=== PATIENT | male | born 1945 | race Caucasian/White ===

== ENCOUNTER 2018-07-03 14:48 | Inpatient (IN) ==
[2018-07-03] MEDS ORDERED: Aspirin 325 MG TABLET PO ONE (15:24)
[2018-07-03 15:42] LABS: Basophils % 0.2 %; Hematocrit 41.8 % (37.5-50.1); Hemoglobin 13.8 g/dL (12.9-16.9); Immature Granulocytes % 0.6 % (0-4); Lymphocytes # 0.9 K/mcL (0.6-4.6); Lymphocytes % 5.2 %; Mean Corpuscular Hemoglobin 28.4 pg (28.0-33.3); Monocytes # 1.5 K/mcL (0.0-1.3); Monocytes % 8.8 %; Neutrophils # 14.2 K/mcL (1.6-8.9); Platelet Count 253 K/mcL (140-400); Red Blood Count 4.86 M/mcL (4.19-5.50); Red Cell Distribution Width 12.7 % (11.5-14.5); Segmented Neutrophils % 85.2 %
[2018-07-03 15:47] LABS: INR 1.5; Prothrombin Time 16.6 Seconds (9.4-12.1)
--- NOTE | 2018-07-03 15:50 | Emergency Department Note ---
Disposition Clinical Impression: Elevated troponin, Liver abscess, Adrenal mass Disposition: Admitted As Inpatient Condition: Fair Referrals: Omar Tesfaye DO [Primary Care Provider] - Forms: ED Satisfaction Letter Time of Disposition: 18:04 General Adult HPI - General Chief complaint: ED Arrhythmia/Palpitations Stated complaint: palpitations Time Seen by Provider: 07/03/18 15:00 Source: patient Mode of arrival: ambulatory Limitations: no limitations Nursing Notes Reviewed: Yes Vital Signs Reviewed: Yes - History of Present Illness HPI Narrative: 73-year-old male in presented to the emergency room for chest pain. Onset was partially 3 weeks ago. His been intermittent for 3 weeks. Associated with fatigue and diaphoresis. States he woke up today having intermittent sweats. States he felt rundown and fatigued. He had some chest pain located to the left side of his anterior chest wall. No pain radiation. He denies any history of coronary disease. Does have a smoking history only. No previous workup for any cardiac catheters in the past. He is chest pain-free at the moment. No other complaints at this time. Nothing seems to bring the chest pain on. Pain Scale: 0 - Related Data Allergies Allergy/AdvReac Type Severity Reaction Status Date / Time No Known Allergies Allergy Verified 07/03/18 14:50 Review of Systems: Gen.: No fevers or chills or new weakness Eyes: Denies double vision or any vision changes Ears: Denies any otalgia Pharynx: Denies sore throat CV-- positive for chest pain Respiratory: Denies any cough or sputum production. No shortness of breath. GI: Denies any nausea, vomiting, diarrhea, constipation. Denies abdominal pain Neuro: Denies any headache. No problems with ambulation. No numbness. Skin: Denies any rashes or abrasions Psych: Denies any depression or suicidal or homicidal ideation Musculoskeletal: Denies any arthralgias or myalgias Past Medical History - Past Medical History Medical history: Reports: hypertension Psychiatric history: Reports: no psych history - Social History Smoking Status: Current every day smoker Alcohol use: Reports: none Drug use: Reports: none Physical Exam HEENT: Head atraumatic normocephalic. Pharynx clear with no exudates. Oral mucosa moist. Uvula midline. TMs clear bilaterally. Trachea midline. No lymphadenopathy. Heart: Regular rate and rhythm. Normal S1 and S2. No gallops, rubs, or murmurs. Lungs: Clear to auscultation bilaterally. No evidence of any rhonchi wheezing or rales. Abdomen: Soft nontender nondistended. Positive bowel sounds. No peritoneal signs. Extremities: No evidence of cyanosis clubbing or edema. Neuro: Cranial nerves II through XII grossly intact. No focal motor or sensory deficits. Speech is clear. Skin: Normal color. dry. Psych: normal mentation. - General Limitations: no limitations General appearance: alert, in no apparent distress Course - Reevaluation(s) Reevaluation #1: consulted with dr davila with IR they can drain this abscess tomorrow and there is ID coverage tomorrow Vital Signs Temperature 98.2 F 07/03/18 14:48 Pulse Rate 86 07/03/18 14:48 Respiratory Rate 18 07/03/18 14:48 Blood Pressure 147/74 07/03/18 14:48 O2 Sat by Pulse Oximetry 96 07/03/18 14:48 Temperature 98.2 F 07/03/18 15:19 Pulse Rate 86 07/03/18 15:19 Respiratory Rate 18 07/03/18 15:19 Blood Pressure 147/74 07/03/18 15:19 O2 Sat by Pulse Oximetry 97 07/03/18 16:04 Oxygen Delivery Oxygen Delivery Room Air Medical Decision Making - [facility] Narrative Medical decision making narrative: CT of the chest did not reveal any acute pulmonary pathology. However, he incidental note of a liver abscess was noted. We then did a dedicated CT abdomen and pelvis with IV contrast which confirmed a large 7 cm liver abscess. And start him on IV vancomycin, Zosyn and Flagyl. Case was discussed with the hospitalist. I have held on any further anticoagulation for his elevated troponin due to this liver abscess. He is not having any active chest pain and he does not have a significant EKG changes. He was given aspirin. He was not started on heparin due to this liver abscess finding and the fact that he will have an interventional radiology procedure tomorrow. - Medical Records Medical records reviewed: Yes I reviewed the patient's medical records. - Lab Data Lab results reviewed: Yes I reviewed the patient's lab results. Result diagrams: 07/03/18 15:20 07/03/18 15:20 Lab Results 07/03/18 07/03/18 07/03/18 Range/Units 15:20 15:20 15:20 WBC 16.7 H (4.3-11.1) K/mcL RBC 4.86 (4.19-5.50) M/mcL Hgb 13.8 (12.9-16.9) g/dL Hct 41.8 (37.5-50.1) % MCV 86.0 (83.0-100.0) fL MCH 28.4 (28.0-33.3) pg MCHC 33.0 (31.6-35.5) g/dL RDW 12.7 (11.5-14.5) % Plt Count 253 (140-400) K/mcL MPV 10.0 (9.4-12.4) fL Immature Gran % 0.6 (0-4) % Seg Neutrophils % 85.2 % Lymphocytes % 5.2 % Monocytes % 8.8 % Eosinophils % 0.0 % Basophils % 0.2 % Neutrophils # 14.2 H (1.6-8.9) K/mcL Lymphocytes # 0.9 (0.6-4.6) K/mcL Monocytes # 1.5 H (0.0-1.3) K/mcL Eosinophils # 0.0 (0.0-0.6) K/mcL Basophils # 0.0 (0.0-0.2) K/mcL PT 16.6 H (9.4-12.1) Seconds INR 1.5 APTT 31.0 (26.0-36.0) Seconds Sodium 136 (136-145) mEq/L Potassium 3.6 (3.5-5.1) mEq/L Chloride 101 (98-107) mEq/L Carbon Dioxide 24 (23-29) mEq/L BUN 17 (8-23) mg/dL Creatinine 0.89 (0.70-1.30) mg/dL Est GFR ( Amer) > 60 (> 60) Est GFR (Non-Af Amer) > 60 (> 60) BUN/Creatinine Ratio 19 (6-26) Glucose 125 H (70-105) mg/dL Calculated Osmolality 285 (280-300) Calcium 8.9 (8.6-10.3) mg/dL Magnesium 2.1 (1.6-2.6) mg/dL Troponin I 0.06 H* (< 0.04) ng/mL TSH 1.678 (0.340-5.600) mcIU/mL - Radiology Data Radiology results reviewed: Yes I reviewed the patient's radiology results. - EKG Data EKG #1 EKG attestation: Yes I reviewed and interpreted this EKG. EKG results narrative: EKG shows a rate of 86. Normal sinus rhythm. Normal axis. MN interval 142. QRS 106. QTC 390. No signs of acute ischemia. Critical Care Time Critical Care Time: Yes Total Critical Care Time: 40 Attestation: Total critical care time of 40 minutes spent in medical management of elevated troponin, liver abscess, and consultation with interventional radiology as well as the hospitalist.
[2018-07-03 15:56] LABS: BUN/Creatinine Ratio 19 (6-26); Blood Urea Nitrogen 17 mg/dL (8-23); Calcium 8.9 mg/dL (8.6-10.3); Carbon Dioxide 24 mEq/L (23-29); Chloride 101 mEq/L (98-107); Glucose 125 mg/dL (70-105); Magnesium 2.1 mg/dL (1.6-2.6); Osmolality,Calculated 285 (280-300); Potassium 3.6 mEq/L (3.5-5.1); Sodium 136 mEq/L (136-145); eGFR For Non-African Americans > 60 (> 60)
[2018-07-03 16:00] LABS: Troponin I 0.06 ng/mL (< 0.04)
[2018-07-03 16:09] LABS: Thyroid Stimulating Hormone 1.678 mcIU/mL (0.340-5.600)
[2018-07-03] MEDS ORDERED: Isovue-370 500 ML INFUS..BTL IV ONE (16:33)
[2018-07-03] MEDS ORDERED: Piperacillin/Tazobactam 3.375 GM in 0.9 % Sodium Chloride Mini Bag 100 ML IVPB ONE (17:57)
[2018-07-03] MEDS ORDERED: MetroNIDAZOLE 500 MG/100 ML 500 MG/100 ML BAG IVPB ONE (17:57)
[2018-07-03] MEDS ORDERED: Naloxone 0.4 MG/ML INJ IVP PRN (20:38)
[2018-07-03] MEDS ORDERED: D5% in Water 1,000 ML IVC PRN (20:45)
[2018-07-03] MEDS ORDERED: *HR* Dextrose 50 % in Water (Syg) 50 ML SYRINGE IVP PRN (20:45)
[2018-07-03] MEDS ORDERED: Dextrose Gel 15 GM/37.5 ML TUBE PO PRN ×2 (20:45)
[2018-07-03] MEDS: MetroNIDAZOLE 500 MG/100 ML 500 MG/100 ML BAG IVPB SCH (23:52)
[2018-07-04 03:20] LABS: Hematocrit 38.1 % (37.5-50.1); Hemoglobin 12.7 g/dL (12.9-16.9); Mean Corpuscular HGB Conc 33.3 g/dL (31.6-35.5); Mean Corpuscular Hemoglobin 28.7 pg (28.0-33.3); Mean Platelet Volume 9.7 fL (9.4-12.4); Platelet Count 244 K/mcL (140-400); Red Blood Count 4.43 M/mcL (4.19-5.50); Red Cell Distribution Width 12.7 % (11.5-14.5)
[2018-07-04 03:39] LABS: BUN/Creatinine Ratio 19 (6-26); Blood Urea Nitrogen 15 mg/dL (8-23); Calcium 8.5 mg/dL (8.6-10.3); Carbon Dioxide 24 mEq/L (23-29); Chloride 102 mEq/L (98-107); Glucose 116 mg/dL (70-105); Osmolality,Calculated 282 (280-300); Potassium 3.6 mEq/L (3.5-5.1); Sodium 135 mEq/L (136-145); eGFR For Non-African Americans > 60 (> 60)
[2018-07-04] MEDS: MetroNIDAZOLE 500 MG/100 ML 500 MG/100 ML BAG IVPB SCH ×3 (06:07→22:54)
[2018-07-04] MEDS: amLODIPine 5 MG TABLET PO SCH (08:14)
[2018-07-04] MEDS: Piperacillin/Tazobactam 3.375 GM in 0.9 % Sodium Chloride Mini Bag 100 ML IVPB SCH ×3 (08:14→22:55)
[2018-07-04] MEDS: Insulin LISPRO 300 UNITS/3 ML VIAL SQ SCH ×4 (08:15→20:43)
--- NOTE | 2018-07-04 09:10 | Internal Med History&Physical ---
Date of Encounter: 07/03/18 Time of Encounter: 22:20 Internal Medicine - H&P: HPI Chief complaint: Liver abscess Admitted From: Home Plans for Post Hospital Care: Home History of present illness: Mr. Romero is a 73 year old male Patient presented to the emergency room complaining of chest pain for the last 3 weeks on and off. He is also had some fatigue as well. He has tried aspirin at home and this is helped him. He saw his primary care provider outpatient and he recommended he come to the emergency room for further evaluation. Over the last few weeks is also had decreased appetite increase lethargy and feeling chills which is not typical for him. In the emergency room patient's pain was located in the left anterior chest without radiation. He is a smoker one pack per day, as well as chewing tobacco. EKG in the emergency room was normal sinus rhythm with a QTC of 390 with no acute changes. He denied history of coronary artery disease. His troponin was elevated at 0.06, chest x-ray showed possible infiltrate in the right lung apex with a recommendation to get a chest CT, which showed 9.1 mm nodule in the right upper lobe. Incidental finding on the chest CT showed air-containing mass in the liver and abdominal and pelvis CT with IV contrast was recommended. The abdominal CT revealed a 7.1 cm gas- containing hepatic lesion consistent with abscess. There is also a 2 mm calculus in the right urinary bladder versus focal bladder wall calcification, indeterminate right adrenal mass 3.1 cm in size. Interventional radiology was notified and will consult on the patient in the morning. Patient was admitted to the hospital for further management of his chest pain and liver abscess. He was started on Vanco, Zosyn and Flagyl in the emergency room. Currently patient denies chest pain. Past Med Surg Social Fam HX - Past Medical History Medical history: hypertension Psychiatric history: no psych history - Social History Smoking Status: Current every day smoker Packs per day: 1/2 Smokeless Tobacco Status: Yes Alcohol use: none Drug use: none Internal Medicine - H&P: Meds Amlodipine Besylate 10 mg PO DAILY 07/03/18 [History] Buspirone HCl [Buspar] 10 mg PO DAILY 07/03/18 [History] Omeprazole [PriLOSEC] 20 mg PO DAILY 07/03/18 [History] 3 Allergy/AdvReac Type Severity Reaction Status Date / Time No Known Allergies Allergy Verified 07/03/18 18:26 All Systems PM: A 10-system review of systems was performed and is negative for pertinent findings except as documented above in the HPI. - Constitutional Vitals: Temp Pulse Resp BP Pulse Ox 99.1 F 85 17 139/56 93 07/04/18 06:55 07/04/18 06:55 07/04/18 06:55 07/04/18 06:55 07/04/18 06:55 General appearance: Present: cooperative, A&O X 3, pleasant, no acute distress, answers questions appropriately - Head Head exam: Present: normal inspection - Eye Eye exam: Present: normal appearance - Respiratory Respiratory exam: Present: CTAB. Absent: chest wall tenderness, wheezes - Cardiovascular Cardiovascular exam: Present: RRR. Absent: diastolic murmur, systolic murmur - GI/Abdominal GI/Abdominal exam: Present: normal bowel sounds, soft. Absent: tenderness - Extremities Exam Extremities exam: Present: warm, radial pulses palpable and symmetrical. Absent : calf tenderness, pedal edema, tenderness - Neurological Exam Neurological exam: Present: strengths equal and symetr throughout. Absent: motor sensory deficit, facial droop, speech deficit - Skin Skin exam: Present: dry, normal color, warm Internal Med - H&P Results - Labs CBC & Chem 7: 07/04/18 03:09 07/04/18 03:09 Labs: Short CBC 07/04/18 Range/Units 03:09 WBC 14.4 H (4.3-11.1) K/mcL Hgb 12.7 L (12.9-16.9) g/dL Hct 38.1 (37.5-50.1) % Plt Count 244 (140-400) K/mcL BMP 07/04/18 03:09 Sodium 135 L Potassium 3.6 Chloride 102 Carbon Dioxide 24 BUN 15 Creatinine 0.80 Glucose 116 H Calcium 8.5 L Cardiac Enzymes 07/03/18 07/04/18 Range/Units 21:17 03:09 Troponin I 0.03 < 0.03 (< 0.04) ng/mL - Assessment and plan (1) Liver abscess Current Visit: Yes Status: Acute Assessment and plan: Liver abscess measuring 7.[address] of abdomen. Interventional radiology consult for emergency room we will consult on the patient in the morning Follow-up recommendations from interventional radiology Continue antibiotics Follow-up results of blood cultures (2) Elevated troponin Current Visit: Yes Status: Acute Assessment and plan: Troponin elevated to 0.06 in the emergency room. Currently patient has no chest pain, EKG showed no acute changes. Patient has no known history of coronary artery disease. Continue to trend troponins Monitor on telemetry (3) Chest pain Current Visit: Yes Status: Acute Assessment and plan: Now resolved, patient was given aspirin in the emergency room. Could be secondary to her abscess and pulmonary nodule, patient has no known history of coronary artery disease. 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 Recommendations from radiology recommended CT at 3 months, PET/CT or tissue sampling. Likely secondary to history of smoking and tobacco use. (5) Diabetes Current Visit: Yes Status: Acute Assessment and plan: Currently patient does not take medication for diabetes, dietary controlled. To monitor blood sugars before meals at bedtime Low-dose insulin sliding scale as needed Qualifiers: Qualified Code(s): E11.9 - Type 2 diabetes mellitus without complications (6) GERD (gastroesophageal reflux disease) Current Visit: Yes Status: Acute Assessment and plan: Continue home medicine Prilosec Qualifiers: Qualified Code(s): K21.9 - Gastro-esophageal reflux disease without esophagitis (7) Nicotine dependence Current Visit: Yes Status: Acute Assessment and plan: Patient declined nicotine patch. Qualifiers: Qualified Code(s): F17.200 - Nicotine dependence, unspecified, uncomplicated (8) Adrenal mass Current Visit: Yes Status: Acute Assessment and plan: Adrenal mass seen on abdominal CT. Twelve-month follow-up CT exam recommended by radiology. (9) DVT prophylaxis Current Visit: Yes Status: Acute Assessment and plan: SCDs - Time Spent With Patient Total time spent is greater than 50% in coordination of care (as documented) at patient's floor/unit and/or counseling patient: Greater than 35 minutes
--- NOTE | 2018-07-04 09:20 | Internal Med Progress Note ---
<Cora Leal - Last Filed: 07/04/18 16:49> Hospitalist Progress Note - Encounter Date of Encounter: 07/04/18 Time of Encounter: 09:18 - Subjective Interval History: 73 y/o male admitted after liver abscess found incidentally when presented to ED for chest pain. Now no complaints and wants to know when he can go home. He states chest pain has resolved but admits to diaphoresis. Denies fever, palpations, shortness of breath, constipation, diarrhea, abdominal pain, nausa or vomiting. He has had 8 lb weight loss in 1-2 months. He has had chills, feverish feeling, and fatigue for 4-5 days. - Exam Vitals: Temp Pulse Resp BP Pulse Ox 99.1 F 85 17 139/56 93 07/04/18 06:55 07/04/18 06:55 07/04/18 06:55 07/04/18 06:55 07/04/18 06:55 Exam: General : pleasant, in no acute distress, A&Ox3 Cardiac: RRR no murmurs or gallop Respiratory: CTAB no wheeze or rales Abdomen: Soft, not distended, no tenderness, no masses, liver was not palpable Extremities: pulses intact, no pedal edema - Assessment and Plan (1) Liver abscess Current Visit: Yes Status: Acute Assessment and Plan: consulted ID and IR - per ID stop antibiotics until IR can see him - order blood cultures (2) Chest pain Current Visit: Yes Status: Acute Assessment and Plan: will continue to trend troponin at 0.06, 0.03, and <0.03 (3) Diabetes Current Visit: Yes Status: Chronic Assessment and Plan: diet controlled at home - ISS low (4) Adrenal mass Current Visit: Yes Status: Acute Assessment and Plan: follow up as out patient (5) Lung nodule < 6cm on CT Current Visit: Yes Status: Acute Assessment and Plan: follow up as out patient DVT Prophylaxis: ambulation - Time Spent with Patient Total time spent is greater than 50% in coordination of care (as documented) at patient's floor/unit and/or counseling patient: less than 15 minutes Plan of Care Discussed with: patient Internal Medicine: Result - Labs CBC & Chem 7: 07/04/18 12:38 07/04/18 12:38 Labs: Short CBC 07/04/18 Range/Units 03:09 WBC 14.4 H (4.3-11.1) K/mcL Hgb 12.7 L (12.9-16.9) g/dL Hct 38.1 (37.5-50.1) % Plt Count 244 (140-400) K/mcL BMP 07/04/18 03:09 Sodium 135 L Potassium 3.6 Chloride 102 Carbon Dioxide 24 BUN 15 Creatinine 0.80 Glucose 116 H Calcium 8.5 L Cardiac Enzymes 07/03/18 07/04/18 Range/Units 21:17 03:09 Troponin I 0.03 < 0.03 (< 0.04) ng/mL - ABG Interpretation ABG results: PT/INR, D-dimer PT 16.6 Seconds (9.4-12.1) H 07/03/18 15:20 Consult Discharge Plan - Plan Referrals: Omar Tesfaye DO [Primary Care Provider] - <Azar Reyes - Last Filed: 07/04/18 18:05> Hospitalist Progress Note - Encounter Date of Encounter: 07/04/18 - Exam Vitals: Temp Pulse Resp BP Pulse Ox 98.8 F 76 22 88/61 96 07/04/18 16:00 07/04/18 17:00 07/04/18 17:00 07/04/18 17:00 07/04/18 17:00 - Time Spent with Patient Total time spent is greater than 50% in coordination of care (as documented) at patient's floor/unit and/or counseling patient: Internal Medicine: Result - Labs CBC & Chem 7: 07/04/18 12:38 07/04/18 12:38 Labs: Short CBC 07/04/18 07/04/18 Range/Units 03:09 12:38 WBC 14.4 H 4.6 D (4.3-11.1) K/mcL Hgb 12.7 L 13.1 (12.9-16.9) g/dL Hct 38.1 41.0 (37.5-50.1) % Plt Count 244 220 (140-400) K/mcL Neutrophils # 4.0 (1.6-8.9) K/mcL BMP 07/04/18 07/04/18 03:09 12:38 Sodium 135 L 139 Potassium 3.6 3.3 L Chloride 102 104 Carbon Dioxide 24 22 L BUN 15 16 Creatinine 0.80 1.00 Glucose 116 H 99 Calcium 8.5 L 8.2 L Cardiac Enzymes 07/03/18 07/04/18 07/04/18 Range/Units 21:17 03:09 12:38 Troponin I 0.03 < 0.03 0.03 (< 0.04) ng/mL Liver Function 07/04/18 Range/Units 12:38 Total Bilirubin 1.2 H (0.3-1.0) mg/dL AST 32 (13-39) Units/L ALT 49 (7-52) Units/L Alkaline Phosphatase 132 H (34-104) Units/L Albumin 2.8 L (3.5-5.7) g/dL - ABG Interpretation ABG results: PT/INR, D-dimer PT 16.6 Seconds (9.4-12.1) H 07/03/18 15:20 - Impressions Impressions Liver Abscess Drainage CT 07/04/18 00:00 IMPRESSION: Successful CT guided placement of liver abscess drainage catheter. D/ / 07/04/2018 15:31:56 Estrella Ortega MD / ellyn Interpreting Provider: Estrella Ortega MD Chest X-Ray 07/04/18 12:11 IMPRESSION: Interstitial prominence noted in both lungs could represent noncardiogenic pulmonary edema or possibly an atypical pneumonia. Otherwise, stable chest D/ / 07/04/2018 13:19:00 Nabil Bass MD / ellyn Interpreting Provider: Nabil Bass MD - Attending Attestation I examined this patient and my medical decision-making was reviewed with the Resident Physician Dr. Leal. I agree with the documented findings, disposition and treatment plan as described except to the extent set forth below. Mr. Romero is a 73 y/o M who presented to ER with chest pain, fatigue and unintentional weight loss 8 lbs in [address] of abd showed hepatic abscess. Pt was admitted in the hospital and started him on empirical abx Zosyn , Vanc and Flagyl. This mroning he went for CT guided Liver biopsy and drainage of abscess. Had 70 cc puruelnt discharge. Later on the floor he developed severe sepsis with tachycardia, tachypenia, diffuse wheezing, shiver and tremors. Gave him Solumedrol, Benadryl and placed him on BiPAP. Pt was transferred to ICU for close monitoring . Now he is off the BiPAP. Resting comfortably on 3 lit O2 NC. Abd pain tolerable with pain meds. Tolerating pO intake well. Gen: A, A, O x 3 Chest: Diminished BS b/l, moderate wheezing no crackles, no rales Heart: S1S2+ RRR No murmurs Abd: Soft, Tendernes RUQ+, Drainage tube+ a/p 1. Severe sepsis 2. Hepatic abscess s/p CT guided I &D Trend on LA f/u on blood cx cont broad spec abx Zosyn , Flagyl and Vancomycin ID consulted Spent 60 minutes critical care time on this pt when he had almost rapid response this morning 3. Acute hypoxic resp failure 4. Reactive airway disease / bronchospasm triggered by sepsis cont IV hydration IV steroids Maribell Talked to the family at bed side and explained to them about current care. <Cora Leal - Last Filed: 07/04/18 16:49> (2) Chest pain Qualifiers: Qualified Code(s): R07.9 - Chest pain, unspecified (3) Diabetes Qualifiers: Qualified Code(s): E11.9 - Type 2 diabetes mellitus without complications
[2018-07-04] MEDS ORDERED: 0.9 % Sodium Chloride 500 ML ONE (10:35)
[2018-07-04] MEDS ORDERED: *HR* Midazolam HCl 2 MG/2 ML VIAL IVP ONE (10:36)
[2018-07-04] MEDS ORDERED: *HR* FentaNYL (PF) 100 MCG/2 ML VIAL IVP ONE (10:36)
--- NOTE | 2018-07-04 10:37 | Pre-Sedation Evaluation ---
Pre-sedation evaluation - Pre-sedation checklist Date of procedure: 07/04/18 Procedure: liver abscess drainage Recent Vitals: Last Vital Signs Temp 99.1 F 07/04/18 06:55 Pulse 85 07/04/18 06:55 Resp 17 07/04/18 06:55 BP 139/56 07/04/18 06:55 Pulse Ox 93 07/04/18 06:55 Dietary Status: NPO 6 hours prior to procedure Possible difficult airway: No ASA Classification *see protocol: CLASS II-Mild systemic disease Plan of Care: Pt appropriate candidate for procedure/moderate/conscious sedation , Risks/benefits of procedure/sedation discussed w/ patient/family, If not NPO; Risk of intake outweiged by necessity to perform procedure Cardiac Registry (Cardio Only) - Functional Capacity - Clincal Frailty Scale Clinical Frailty Scale: Well
--- NOTE | 2018-07-04 11:19 | IR Procedure Note ---
Date of procedure: 07/04/18 Consent Obtained: Written consent Timeout: Correct patient and procedure verified, Correct site verified, Time out performed, Skin prep completed Indications: liver abscess Procedure Performed: drainage Was there an certified registered dental assistant present: No Site/Technique: liver Results/Findings: 70cc smelly pus Estimated blood loss (cc): 0 Complications: None; Tolerated procedure well Post Procedure Treatment Plan: suction bulb Specimen: 70cc pus from liver, sent for cultures
[2018-07-04] MEDS ORDERED: 0.9 % Sodium Chloride 1,000 ML ONE (11:51)
[2018-07-04] MEDS ORDERED: Acetaminophen 325 MG TABLET PO PRN (11:52)
[2018-07-04] MEDS ORDERED: Ipratropium/Albuterol Neb 3 ML ONE (11:52)
[2018-07-04] MEDS ORDERED: methylPREDNISolone 125 MG/2 ML VIAL IVP ONE (11:55)
[2018-07-04] MEDS ORDERED: methylPREDNISolone 125 MG/2 ML VIAL ONE (11:55)
[2018-07-04] MEDS ORDERED: Acetaminophen 650 MG RECTAL SUPP RC PRN (12:01)
[2018-07-04] MEDS ORDERED: 0.9 % Sodium Chloride 1,000 ML IVC ONE (12:23)
--- NOTE | 2018-07-04 12:54 | Infectious Disease Consult ---
Date of Encounter: 07/04/18 Time of Encounter: 12:47 Assessment and Plan (1) Sepsis Status: Acute Assessment and plan: The patient developed tachycardia, low-grade fever, and tachypnea post- procedure. He also had leukocytosis on admission. Likely secondary to liver abscess. Concern for shedding of bacteria into the bloodstream with drain placement. Improved. WBC trending down today. Blood cultures drawn 07/03/18 are pending X 2 sets. Get blood cultures x 2 sets now. Check lactic acid. IV fluids per the primary team. Qualifiers: Sepsis type: sepsis due to unspecified organism Qualified Code(s): A41.9 - Sepsis, unspecified organism (2) Liver abscess Status: Acute Assessment and plan: Etiology: Unclear. The patient's CT scan shows diverticulosis without diverticulitis and the patient has no known cases of diverticulitis, although this could be a possible cause of the patient's liver abscess. Causative organism: Unclear. CT of the abdomen and pelvis showed a 7.1cm liver abscess. IR consulted. Status post CT-guided drain placement with approximately 70ml of pus drained. Culture and cytology pending. I called and spoke with Hermes in the lab who states they did receive the specimen and he will get it started. Continue Zosyn 3.375 grams IV Q8H. Continue Vancomycin IV for now to cover Enterococcus that might be amp- resistant. Pharmacy to dose. Goal trough ~15. If gram stain negative for GPC, will discontinue. Start Flagyl 500mg IV TID until cultures result to cover E. histolytica, although less likely. Duration of treatment depends on the clinical picture. Monitor renal function and for drug toxicity and dose-adjust antibiotics. (3) Elevated troponin Status: Acute Assessment and plan: Troponin 0.06/0.03/0.03. Consider cardiology consult. (4) Adrenal mass Status: Acute Assessment and plan: Etiology unclear, but does not appear infectious. Further workup and management per the primary team. (5) Lung nodule < 6cm on CT Status: Acute Assessment and plan: CT chest showed a 9.1mm RUL nodule. Pulmonology follow-up as an outpatient. (6) GERD (gastroesophageal reflux disease) Status: Chronic Qualifiers: Esophagitis presence: esophagitis presence not specified Qualified Code(s) : K21.9 - Gastro-esophageal reflux disease without esophagitis Infectious Disease HPI - Data of Consult Patient: new to practice Consult date: 07/04/18 Requesting Physician: Jasmine Skelton Primary Care Provider: Omar Tesfaye DO Family Provider: Omar Tesfaye DO - Consult Narrative Reason for consult: Liver abscess History of present illness: Mr. Romero is a 73 year old male with a past medical history of hypertension. The patient was admitted to the hospital July 03 for elevated troponin, liver abscess, and adrenal mass. We are consulted July 04 for further recommendations for liver abscess. Flu, the patient is a 73-year-old male with past medical history as stated above. The patient presented to the emergency department at the direction of his primary care provider for complaints of intermittent chest pain for the past 3 weeks. He also reported generalized fatigue and malaise with night sweats and weight loss. Upon arrival to the ER, the patient was afebrile and hemodynamically stable. He did have leukocytosis with neutrophilic predominance. His troponin was mildly elevated at 0.06. He had a chest x-ray that showed a possible right lung apex infiltrate and the radiologist recommended further evaluation with a CT of the chest. The CT of the chest showed a 9.1mm nodule in the right upper lung as well as an incidental finding of a liver mass. He had a dedicated CT of the abdomen and pelvis that showed a 7.1 cm liver abscess. He was started on Vanc, Zosyn, and Flagyl and admitted to the hospital for further evaluation. Since admission, the patient's white blood cell count has started to trend down. He has remained afebrile and hemodynamically stable. Interventional radiology was consulted and performed a CT-guided drain placement in the liver abscess. Approximately 70 mL of pus was removed. After the procedure, the patient became dyspneic, had low-grade fever and rigors, and had tachypnea. He improved with BIPAP, rectal Tylenol, and solumedrol. Body fluid was sent for culture as well as cytology. His antibiotics were restarted after the procedure. He is currently on vancomycin and Zosyn. We have been asked to evaluate and make further recommendations. During my exam today, the patient is somewhat drowsy and unable to provide me with any information, therefore, most of the information is obtained from his who is at the bedside. Apparently, the patient has been feeling generally unwell for the last 3-4 weeks. She states she has not been as active as normal and he has had a very poor appetite. She states she has lost about 8 pounds since his last PCP visit in February. She states she often wakes up in the nighttime with rigors and night sweats and chills that spontaneously resolved. According to the notes, the patient was complaining of left-sided chest pain that had been intermittent for the last 3 weeks as well. He denied any nausea or vomiting or diarrhea or change in his bowel habits. He denied any abdominal pain or urinary complaints. He denied any oral thrush or new skin lesions. The patient lives at home with his in [place], [place]. He is a retired eligibility examiner. He smokes about a pack of cigarettes per day. Per his , he does not use alcohol or illicit drugs. She denies any recent travel outside the [facility]. CC: Jasmine Skelton Past Med Surg Social Fam HX - Past Medical History Source: old records reviewed, obtained from family, nursing notes reviewed Medical history: hypertension Psychiatric history: no psych history - Past Surgical History Additional surgical history: Esophageal dilation. - Social History Smoking Status: Current every day smoker Packs per day: 1/2 Smokeless Tobacco Status: Yes Alcohol use: none Drug use: none Occupational status: retired Current living situation: Home, With Family Activity Level: Independent ambulation Recent Out of Country Travel Within the Last 8 Weeks: No Exposure or Possible Exposure to Illness During Travel: No Infectious Disease-CN:Meds Amlodipine Besylate 10 mg PO DAILY 07/03/18 [History] Buspirone HCl [Buspar] 10 mg PO DAILY 07/03/18 [History] Omeprazole [PriLOSEC] 20 mg PO DAILY 07/03/18 [History] Aspirin 81 mg PO DAILY #30 tab.chew 07/08/18 [Rx] Metoprolol [Lopressor] 25 mg PO BID 30 Days #30 tablet 07/08/18 [Rx] Kzymiipbwjoc-Lpvb-Qxtbdgoo,Iso [Zosyn 4.5 gm/100 ml Galaxy Bag] 4.5 gm IV Q8H # 84 froz.piggy 07/08/18 [Rx] 3 Allergy/AdvReac Type Severity Reaction Status Date / Time No Known Allergies Allergy Verified 07/03/18 18:26 All systems: reviewed and no additional remarkable complaints except as stated Exam - Constitutional Vitals: Temp Pulse Resp BP Pulse Ox 99.1 F 74 25 131/64 93 07/04/18 06:55 07/04/18 10:58 07/04/18 10:58 07/04/18 10:58 07/04/18 10:58 General appearance: average body habitus, cooperative, no acute distress - Head Head exam: Present: atraumatic, normal inspection, normocephalic - Eye Eye exam: Present: EOMI, normal appearance, PERRL Pupils: Present: normal accommodation - ENT ENT exam: Present: mucous membranes moist - Neck Neck exam: Present: normal inspection - Respiratory Respiratory exam: Present: CTAB. Absent: rales, respiratory distress, rhonchi, wheezes - Cardiovascular Cardiovascular exam: Present: RRR, +S1, +S2 - GI/Abdominal GI/Abdominal exam: Present: normal bowel sounds, soft. Absent: distended, tenderness Additional comments: KADEN drain noted to the RUQ with small amount of dark brown drainage. - Extremities Exam Extremities exam: Present: normal inspection. Absent: joint swelling, pedal edema, tenderness - Neurological Exam Neurological exam: Present: alert, oriented X3, no focal deficits - Psychiatric Psychiatric exam: Present: normal affect, normal mood - Skin Skin exam: Present: dry, intact, normal color, warm Infectious Disease CN: Results - Labs CBC & Chem 7: 07/08/18 04:33 07/08/18 04:33 Consult Discharge Plan - Plan Referrals: Angelia Alvarez CNP [Advanced Practice Nurse] - 07/23/18 9:20 am (Please follow up as schedule...) Omar Tesfaye DO [Primary Care Provider] - 07/15/18 1:00 pm (Please follow up as schedule...) Prescriptions: Aspirin 81 mg PO DAILY #30 tab.chew Metoprolol [Lopressor] 25 mg PO BID 30 Days #30 tablet Mvylcoghulsp-Utkr-Otelxdsl,Iso [Zosyn 4.5 gm/100 ml Galaxy Bag] 4.5 gm IV Q8H # 84 froz.piggy
[2018-07-04 13:16] LABS: Troponin I 0.03 ng/mL (< 0.04)
[2018-07-04 13:21] LABS: Hemoglobin 13.1 g/dL (12.9-16.9); Mean Corpuscular Hemoglobin 28.4 pg (28.0-33.3); Mean Corpuscular Volume 88.7 fL (83.0-100.0); Mean Platelet Volume 10.6 fL (9.4-12.4); Platelet Count 220 K/mcL (140-400); Red Blood Count 4.62 M/mcL (4.19-5.50); Red Cell Distribution Width 12.8 % (11.5-14.5)
[2018-07-04 13:26] LABS: Alanine Aminotransferase 49 Units/L (7-52); Albumin 2.8 g/dL (3.5-5.7); Albumin/Globulin Ratio 0.9 (1.1-2.2); Alkaline Phosphatase 132 Units/L (34-104); Aspartate Amino Transferase 32 Units/L (13-39); BUN/Creatinine Ratio 16 (6-26); Bilirubin,Total 1.2 mg/dL (0.3-1.0); Blood Urea Nitrogen 16 mg/dL (8-23); C-Reactive Protein 216 mg/L (Less than 10); Calcium 8.2 mg/dL (8.6-10.3); Carbon Dioxide 22 mEq/L (23-29); Chloride 104 mEq/L (98-107); Globulin 3.2 g/dL (2.4-3.5); Glucose 99 mg/dL (70-105); Magnesium 1.8 mg/dL (1.6-2.6); Osmolality,Calculated 289 (280-300); Potassium 3.3 mEq/L (3.5-5.1); Sodium 139 mEq/L (136-145); eGFR For Non-African Americans > 60 (> 60)
[2018-07-04 13:39] LABS: Lymphocytes # 0.6 K/mcL (0.6-4.6); Monocytes # 0.1 K/mcL (0.0-1.3)
[2018-07-04 13:40] LABS: Platelet Estimate Normal (Normal)
[2018-07-04] MEDS: 0.9 % Sodium Chloride 1,000 ML IVC SCH ×2 (14:09→22:59)
[2018-07-04] MEDS: Ipratropium/Albuterol Neb 3 ML IH SCH ×3 (15:34→23:04)
[2018-07-04] MEDS: *HR* OxyCODONE/APAP 5/325 TABLET PO PRN ×2 (15:58→23:02)
--- NOTE | 2018-07-04 16:32 | Electrocardiograph Report ---
[address] [place], [place] [address] Test Date: 2018-07-03 Pat Name: Denis Romero Department: 104 Room: [facility] Gender: M Central Office Equipment Installer: : 1945 Requested By: Lacey Spring Order Number: [id number] Reading MD: Trish Nickerson Measurements Intervals [place] Rate: 86 P: 56 LA: 142 QRS: 49 QRSD: 106 T: 64 QT: 347 QTc: 390 Interpretive Statements SINUS RHYTHM WITH SINUS ARRHYTHMIA ARTIFACT Electronically Signed On 07-04-2018 16:31:08 EDT by Trish Nickerson
[2018-07-04] MEDS ORDERED: *HR* OxyCODONE/APAP 5/325 TABLET PO ONE (17:51)
[2018-07-04] MEDS: MethylPREDNISolone 40 MG/ML VIAL IVP SCH ×2 (17:58→22:54)
[2018-07-04 21:20] LABS: Acinetobacter baumannii by PCR Not Detected (Not Detect); Candida albicans by PCR Not Detected (Not Detect); Candida glabrata by PCR Not Detected (Not Detect); Candida krusei by PCR Not Detected (Not Detect); Candida parapsilosis by PCR Not Detected (Not Detect); Candida tropicalis by PCR Not Detected (Not Detect); Enterococcus by PCR Not Detected (Not Detect); Escherichia coli by PCR Not Detected (Not Detect); Klebsiella oxytoca by PCR Not Detected (Not Detect); Klebsiella pneumoniae by PCR Not Detected (Not Detect); Pseudomonas aeruginosa by PCR Not Detected (Not Detect); Serratia marcescens by PCR Not Detected (Not Detect); Staphylococcus aureus by PCR Not Detected (Not Detect); Streptococcus agalactiae(B)PCR Not Detected (Not Detect); Streptococcus by PCR Not Detected (Not Detect); Streptococcus pneumoniae PCR Not Detected (Not Detect); Streptococcus pyogenes (A) PCR Not Detected (Not Detect); blaKPC Carbapenem-Resist Gene Not Detected (Not Detect); mecA Methicillin-Resist Gene Not Detected (Not Detect); vanA/B Vancomycin-Resist Genes Not Detected (Not Detect)
[2018-07-05] MEDS: Ipratropium/Albuterol Neb 3 ML IH SCH ×5 (03:41→20:38)
[2018-07-05 05:33] LABS: Hematocrit 35.5 % (37.5-50.1); Hemoglobin 11.6 g/dL (12.9-16.9); Mean Corpuscular HGB Conc 32.7 g/dL (31.6-35.5); Mean Corpuscular Hemoglobin 28.9 pg (28.0-33.3); Mean Corpuscular Volume 88.5 fL (83.0-100.0); Mean Platelet Volume 10.3 fL (9.4-12.4); Platelet Count 183 K/mcL (140-400); Red Blood Count 4.01 M/mcL (4.19-5.50)
[2018-07-05 05:47] LABS: BUN/Creatinine Ratio 17 (6-26); Blood Urea Nitrogen 18 mg/dL (8-23); Calcium 7.7 mg/dL (8.6-10.3); Carbon Dioxide 19 mEq/L (23-29); Chloride 107 mEq/L (98-107); Glucose 276 mg/dL (70-105); Magnesium 2.1 mg/dL (1.6-2.6); Osmolality,Calculated 298 (280-300); Potassium 3.1 mEq/L (3.5-5.1); Sodium 138 mEq/L (136-145); eGFR For Non-African Americans > 60 (> 60)
[2018-07-05] MEDS: 0.9 % Sodium Chloride 1,000 ML IVC SCH ×2 (05:59→14:56)
[2018-07-05] MEDS: MethylPREDNISolone 40 MG/ML VIAL IVP SCH (05:59)
[2018-07-05 06:16] LABS: Neutrophils # 23.5 K/mcL (1.6-8.9); Platelet Estimate Normal (Normal)
[2018-07-05] MEDS: Insulin LISPRO 300 UNITS/3 ML VIAL SQ SCH ×4 (08:03→21:50)
[2018-07-05] MEDS: amLODIPine 5 MG TABLET PO SCH (09:20)
[2018-07-05] MEDS: Piperacillin/Tazobactam 3.375 GM in 0.9 % Sodium Chloride Mini Bag 100 ML IVPB SCH ×2 (09:21→16:37)
[2018-07-05] MEDS: MetroNIDAZOLE 500 MG/100 ML 500 MG/100 ML BAG IVPB SCH ×2 (09:21→19:15)
[2018-07-05] MEDS: *HR* OxyCODONE/APAP 5/325 TABLET PO PRN (09:23)
--- NOTE | 2018-07-05 09:59 | Infectious Disease Progress No ---
Date of Encounter: 07/05/18 Time of Encounter: 08:40 - Assessment and Plan (1) Sepsis Current Visit: Yes Status: Acute Severe sepsis: The patient developed tachycardia, low-grade fever, and tachypnea post-procedure. He also had leukocytosis on admission. Lactic acid elevated and was a little hypotensive yesterday. Likely secondary to liver abscess and bacteremia. Improved clinically, but now has worsening leukocytosis, but this could be reactive from procedure yesterday and steroids. He was febrile overnight with Tmax 103. Hypotension resolved. Blood cultures drawn 07/03/18 are positive 1/2 sets for GNR. Repeat blood cultures drawn 07/04/18 are pending x 2 sets. Qualifiers: Sepsis type: sepsis due to unspecified organism Qualified Code(s): A41.9 - Sepsis, unspecified organism (2) Bacteremia Current Visit: Yes Status: Acute Causative organism unclear, but appears to be a GNR. Unsure if this is secondary to liver abscess or if liver abscess is sequelae of bacteremia. Blood cultures drawn 07/03/18 are positive 1/2 sets for GNR, but PCR is negative. Repeat blood cultures drawn 07/04/18 are pending x 2 sets. Continue Zosyn 3.375 grams IV Q8H for now. De-escalate antibiotics if/when able based on cultures. Duration of treatment depends on the clinical picture. Monitor renal function and for drug toxicity and dose-adjust antibiotics. (3) Liver abscess Current Visit: Yes Status: Acute Etiology: Unclear. The patient has bacteremia, so unclear if this is the source of his bacteremia or sequelae. The patient's CT scan shows diverticulosis without diverticulitis and the patient has no known cases of diverticulitis, although this could be a possible cause of the patient's liver abscess. Causative organism: Unclear. I spoke with micro lab who reports the gram stain shows gram positive cocci and GNR. CT of the abdomen and pelvis showed a 7.1cm liver abscess. IR consulted. Status post CT-guided drain placement with approximately 70ml of pus drained 07/04/18. Culture and cytology pending. Gram stain pending. Continue Zosyn 3.375 grams IV Q8H. Continue Vancomycin IV for now to cover Enterococcus that might be amp- resistant. Pharmacy to dose. Goal trough ~15. Duration of treatment depends on the clinical picture. Monitor renal function and for drug toxicity and dose-adjust antibiotics. (4) Lactic acidosis Current Visit: Yes Status: Acute Likely secondary to sepsis. Continue to trend. (5) Elevated troponin Current Visit: Yes Status: Acute Troponin 0.06/0.03/0.03. Consider cardiology consult. (6) Adrenal mass Current Visit: Yes Status: Acute Etiology unclear, but does not appear infectious. Further workup and management per the primary team. (7) Lung nodule < 6cm on CT Current Visit: Yes Status: Acute CT chest showed a 9.1mm RUL nodule. Pulmonology follow-up as an outpatient. (8) GERD (gastroesophageal reflux disease) Current Visit: Yes Status: Chronic Qualifiers: Esophagitis presence: esophagitis presence not specified Qualified Code(s) : K21.9 - Gastro-esophageal reflux disease without esophagitis - Subjective Interval history: Patient seen and examined. No acute events noted overnight. Patient sitting up in bed with at bedside. States he feels better this morning. Reports pain 2 /10 at the drain site, but otherwise denies pain. Denies chest pain, shortness of breath, or cough. Denies nausea, vomiting, or diarrhea. Denies urinary complaints and states he ate a little bit of breakfast this morning. Denies oral thrush or skin lesions. Infect Dis PN-Objective Data - Labs CBC & Chem 7: 07/08/18 04:33 07/08/18 04:33 Labs: Laboratory Results - last 24 hr 07/03/18 07/04/18 07/04/18 20:57 08:10 11:40 WBC RBC Hgb Hct MCV MCH MCHC RDW Plt Count MPV Seg Neutrophils % Band Neutrophils % Lymphocytes % Monocytes % Neutrophils # Lymphocytes # Monocytes # Platelet Estimate ESR Sodium Potassium Chloride Carbon Dioxide BUN Creatinine Est GFR ( Amer) Est GFR (Non-Af Amer) BUN/Creatinine Ratio Glucose POC Glucose 125 H 103 H 96 Calculated Osmolality Lactic Acid Calcium Magnesium Total Bilirubin AST ALT Alkaline Phosphatase Troponin I C-Reactive Protein Serum Total Protein Albumin Globulin Albumin/Globulin Ratio Vancomycin Trough 07/04/18 07/04/18 07/04/18 12:38 12:38 12:38 WBC 4.6 D RBC 4.62 Hgb 13.1 Hct 41.0 MCV 88.7 MCH 28.4 MCHC 32.0 RDW 12.8 Plt Count 220 MPV 10.6 Seg Neutrophils % 84.0 Band Neutrophils % 2.0 Lymphocytes % 12.0 Monocytes % 2.0 Neutrophils # 4.0 Lymphocytes # 0.6 Monocytes # 0.1 Platelet Estimate Normal ESR 88 H Sodium 139 Potassium 3.3 L Chloride 104 Carbon Dioxide 22 L BUN 16 Creatinine 1.00 Est GFR ( Amer) > 60 Est GFR (Non-Af Amer) > 60 BUN/Creatinine Ratio 16 Glucose 99 POC Glucose Calculated Osmolality 289 Lactic Acid Calcium 8.2 L Magnesium 1.8 Total Bilirubin 1.2 H AST 32 ALT 49 Alkaline Phosphatase 132 H Troponin I 0.03 C-Reactive Protein 216 H Serum Total Protein 6.0 L Albumin 2.8 L Globulin 3.2 Albumin/Globulin Ratio 0.9 L Vancomycin Trough 07/04/18 07/04/18 07/04/18 12:38 13:08 16:03 WBC RBC Hgb Hct MCV MCH MCHC RDW Plt Count MPV Seg Neutrophils % Band Neutrophils % Lymphocytes % Monocytes % Neutrophils # Lymphocytes # Monocytes # Platelet Estimate ESR Sodium Potassium Chloride Carbon Dioxide BUN Creatinine Est GFR ( Amer) Est GFR (Non-Af Amer) BUN/Creatinine Ratio Glucose POC Glucose 97 136 H Calculated Osmolality Lactic Acid 3.4 H Calcium Magnesium Total Bilirubin AST ALT Alkaline Phosphatase Troponin I C-Reactive Protein Serum Total Protein Albumin Globulin Albumin/Globulin Ratio Vancomycin Trough 07/04/18 07/04/18 07/05/18 16:28 19:26 05:09 WBC 23.5 H D RBC 4.01 L Hgb 11.6 L D Hct 35.5 L MCV 88.5 MCH 28.9 MCHC 32.7 RDW 13.0 Plt Count 183 MPV 10.3 Seg Neutrophils % 88.0 Band Neutrophils % 12.0 H Lymphocytes % 0.0 Monocytes % Neutrophils # 23.5 H Lymphocytes # 0.0 L Monocytes # Platelet Estimate Normal ESR Sodium Potassium Chloride Carbon Dioxide BUN Creatinine Est GFR ( Amer) Est GFR (Non-Af Amer) BUN/Creatinine Ratio Glucose POC Glucose 191 H Calculated Osmolality Lactic Acid 2.3 H Calcium Magnesium Total Bilirubin AST ALT Alkaline Phosphatase Troponin I C-Reactive Protein Serum Total Protein Albumin Globulin Albumin/Globulin Ratio Vancomycin Trough 07/05/18 07/05/18 07/05/18 05:09 05:09 08:45 WBC RBC Hgb Hct MCV MCH MCHC RDW Plt Count MPV Seg Neutrophils % Band Neutrophils % Lymphocytes % Monocytes % Neutrophils # Lymphocytes # Monocytes # Platelet Estimate ESR Sodium 138 Potassium 3.1 L Chloride 107 Carbon Dioxide 19 L BUN 18 Creatinine 1.04 Est GFR ( Amer) > 60 Est GFR (Non-Af Amer) > 60 BUN/Creatinine Ratio 17 Glucose 276 H POC Glucose Calculated Osmolality 298 Lactic Acid 3.5 H Calcium 7.7 L Magnesium 2.1 Total Bilirubin AST ALT Alkaline Phosphatase Troponin I C-Reactive Protein Serum Total Protein Albumin Globulin Albumin/Globulin Ratio Vancomycin Trough 9 Cultures: Cultures 07/04/18 12:38 Blood Culture - Preliminary Peripheral Venipuncture Culture is incubating and being continuously monitored for growth. Final report to follow. 07/04/18 12:38 Blood Culture - Preliminary Peripheral Venipuncture Culture is incubating and being continuously monitored for growth. Final report to follow. - Impressions Impressions Liver Abscess Drainage CT 07/04/18 00:00 IMPRESSION: Successful CT guided placement of liver abscess drainage catheter. D/ / 07/04/2018 15:31:56 Estrella Ortega MD / ellyn Interpreting Provider: Estrella Ortega MD Chest X-Ray 07/04/18 12:11 IMPRESSION: Interstitial prominence noted in both lungs could represent noncardiogenic pulmonary edema or possibly an atypical pneumonia. Otherwise, stable chest D/ / 07/04/2018 13:19:00 Nabil Bass MD / ellyn Interpreting Provider: Nabil Bass MD Exam - Constitutional Vitals: Temp Pulse Resp BP Pulse Ox 97.3 F L 74 19 125/67 96 07/05/18 07:24 07/05/18 08:00 07/05/18 08:00 07/05/18 08:00 07/05/18 08:00 General appearance: average body habitus, cooperative, no acute distress - Head Head exam: Present: atraumatic, normal inspection, normocephalic - Eye Eye exam: Present: EOMI, normal appearance, PERRL Pupils: Present: normal accommodation - ENT ENT exam: Present: mucous membranes moist - Neck Neck exam: Present: normal inspection - Respiratory Respiratory exam: Present: CTAB. Absent: rales, respiratory distress, rhonchi, wheezes - Cardiovascular Cardiovascular exam: Present: RRR, +S1, +S2 - GI/Abdominal GI/Abdominal exam: Present: normal bowel sounds, soft. Absent: distended, tenderness Additional comments: KADEN drain noted to the RUQ with small amount of serosanguinous drainage noted. - Extremities Exam Extremities exam: Present: normal inspection. Absent: joint swelling, pedal edema, tenderness - Neurological Exam Neurological exam: Present: alert, oriented X3, no focal deficits - Psychiatric Psychiatric exam: Present: normal affect, normal mood - Skin Skin exam: Present: dry, intact, normal color, warm Consult Discharge Plan - Plan Referrals: Angelia Alvarez, KENYATTA [Advanced Practice Nurse] - 07/23/18 9:20 am (Please follow up as schedule...) Omar Tesfaye DO [Primary Care Provider] - 07/15/18 1:00 pm (Please follow up as schedule...) Prescriptions: Aspirin 81 mg PO DAILY #30 tab.chew Metoprolol [Lopressor] 25 mg PO BID 30 Days #30 tablet Vaqvuobkymjb-Cmix-Frbehjme,Iso [Zosyn 4.5 gm/100 ml Galaxy Bag] 4.5 gm IV Q8H # 84 abhijeet
--- NOTE | 2018-07-05 10:16 | Internal Med Progress Note ---
<Cora Leal - Last Filed: 07/05/18 14:52> Hospitalist Progress Note - Encounter Date of Encounter: 07/05/18 Time of Encounter: 14:54 - Subjective Interval History: 73 y/o male admitted after liver abscess found incidentally when presented to ED for chest pain. Yesterday after IR procedure he had episode of shortness and breath with wheezing. He feels better today and denies shortness of breath or wheezing. Denies fever, chest pain, palpations, shortness of breath, or chills. - Exam Vitals: Temp Pulse Resp BP Pulse Ox 97.3 F L 74 19 125/67 96 07/05/18 07:24 07/05/18 08:00 07/05/18 08:00 07/05/18 08:00 07/05/18 08:00 Exam: General : pleasant, in no acute distress, A&Ox3 Cardiac: RRR no murmurs or gallop Respiratory: CTAB no wheeze or rales Abdomen: Soft, not distended, no tenderness, no masses or organomegaly Extremities: pulses intact, no pedal edema - Assessment and Plan (1) Sepsis Current Visit: Yes Status: Acute Assessment and Plan: ID consulted for bacteremia likely due to liver abscess with transient evaluated temperature, transient tachycardia and WBC increase to 23.5 post IR aspiration procedure - abscess cultures grew gram negative rods - blood cultures 1 of 4 positive for gram negative rods, 2 other cultures pending - Per ID continue zosyn & vanc Post procedure episode of SOB yesterday possible ddx severe sepsis vs hypersensitivity reaction -Seen by Dr Reyes and treated with benadryl, steriods and IV fluids at that time- resolved. (2) Liver abscess Current Visit: Yes Status: Acute Assessment and Plan: see plan for sepsis (3) Diabetes Current Visit: Yes Status: Chronic Assessment and Plan: continue insulin sliding scale in presence of sepsis (4) Adrenal mass Current Visit: Yes Status: Acute Assessment and Plan: follow up out patient (5) Lung nodule < 6cm on CT Current Visit: Yes Status: Acute Assessment and Plan: follow up outpatient (6) Chest pain Current Visit: Yes Status: Resolved DVT Prophylaxis: ambulation - Time Spent with Patient Total time spent is greater than 50% in coordination of care (as documented) at patient's floor/unit and/or counseling patient: Internal Medicine: Result - Labs CBC & Chem 7: 07/05/18 05:09 07/05/18 05:09 Labs: Short CBC 07/04/18 07/05/18 Range/Units 12:38 05:09 WBC 4.6 D 23.5 H D (4.3-11.1) K/mcL Hgb 13.1 11.6 L D (12.9-16.9) g/dL Hct 41.0 35.5 L (37.5-50.1) % Plt Count 220 183 (140-400) K/mcL Neutrophils # 4.0 23.5 H (1.6-8.9) K/mcL BMP 07/04/18 07/05/18 12:38 05:09 Sodium 139 138 Potassium 3.3 L 3.1 L Chloride 104 107 Carbon Dioxide 22 L 19 L BUN 16 18 Creatinine 1.00 1.04 Glucose 99 276 H Calcium 8.2 L 7.7 L Cardiac Enzymes 07/04/18 Range/Units 12:38 Troponin I 0.03 (< 0.04) ng/mL Liver Function 07/04/18 Range/Units 12:38 Total Bilirubin 1.2 H (0.3-1.0) mg/dL AST 32 (13-39) Units/L ALT 49 (7-52) Units/L Alkaline Phosphatase 132 H (34-104) Units/L Albumin 2.8 L (3.5-5.7) g/dL - ABG Interpretation ABG results: PT/INR, D-dimer PT 16.6 Seconds (9.4-12.1) H 07/03/18 15:20 - Impressions Impressions Liver Abscess Drainage CT 07/04/18 00:00 IMPRESSION: Successful CT guided placement of liver abscess drainage catheter. D/ / 07/04/2018 15:31:56 Estrella Ortega MD / [facility] Interpreting Provider: Estrella Ortega MD Chest X-Ray 07/04/18 12:11 IMPRESSION: Interstitial prominence noted in both lungs could represent noncardiogenic pulmonary edema or possibly an atypical pneumonia. Otherwise, stable chest D/ / 07/04/2018 13:19:00 Nabil Bass MD / [facility] Interpreting Provider: Nabil Bass MD Consult Discharge Plan - Plan Referrals: Omar Tesfaye DO [Primary Care Provider] - <Azar Reyes - Last Filed: 07/05/18 17:49> Hospitalist Progress Note - Encounter Date of Encounter: 07/05/18 - Exam Vitals: Temp Pulse Resp BP Pulse Ox 97.8 F 73 18 130/69 96 07/05/18 17:07 07/05/18 17:07 07/05/18 17:07 07/05/18 17:07 07/05/18 17:07 - Time Spent with Patient Total time spent is greater than 50% in coordination of care (as documented) at patient's floor/unit and/or counseling patient: Internal Medicine: Result - Labs CBC & Chem 7: 07/05/18 05:09 07/05/18 05:09 Labs: Short CBC 07/05/18 Range/Units 05:09 WBC 23.5 H D (4.3-11.1) K/mcL Hgb 11.6 L D (12.9-16.9) g/dL Hct 35.5 L (37.5-50.1) % Plt Count 183 (140-400) K/mcL Neutrophils # 23.5 H (1.6-8.9) K/mcL BMP 07/05/18 05:09 Sodium 138 Potassium 3.1 L Chloride 107 Carbon Dioxide 19 L BUN 18 Creatinine 1.04 Glucose 276 H Calcium 7.7 L - ABG Interpretation ABG results: PT/INR, D-dimer PT 16.6 Seconds (9.4-12.1) H 07/03/18 15:20 - Attending Attestation I examined this patient and my medical decision-making was reviewed with the Resident Physician Dr. Leal. I agree with the documented findings, disposition and treatment plan as described except to the extent set forth below. Mr. Romero is a 73 y/o M who presented to ER with chest pain, fatigue and unintentional weight loss 8 lbs in [address] of abd showed hepatic abscess. Pt was admitted in the hospital and started him on empirical abx Zosyn , Vanc and Flagyl. This mroning he went for CT guided Liver biopsy and drainage of abscess. Had 70 cc puruelnt discharge.He is Resting comfortably on 3 lit O2 NC. Abd pain tolerable with pain meds. Tolerating pO intake well. Gen: A, A, O x 3 Chest: Diminished BS b/l, mild wheezing no crackles, no rales Heart: S1S2+ RRR No murmurs Abd: Soft, Tendernes RUQ+, Drainage tube+ a/p 1. Severe sepsis 2. Hepatic abscess s/p CT guided I &D 3. Bacteremia with G-ve rods Trend on LA blood cx - G-ve rods cont broad spec abx Zosyn , Flagyl and Vancomycin ID is on board fluid cx - G-ve rods, G+ve cocci Spent 60 minutes critical care time on this pt when he had almost rapid response this morning 3. Acute hypoxic resp failure 4. Reactive airway disease / bronchospasm triggered by sepsis resolved d/c Steroids Duoneb Medically stable to [facility] <Cora Leal - Last Filed: 07/05/18 14:52> (1) Sepsis Qualifiers: Sepsis type: sepsis due to unspecified organism Qualified Code(s): A41.9 - Sepsis, unspecified organism
[2018-07-06] MEDS: *HR* OxyCODONE/APAP 5/325 TABLET PO PRN (00:09)
[2018-07-06] MEDS: MetroNIDAZOLE 500 MG/100 ML 500 MG/100 ML BAG IVPB SCH ×4 (00:10→23:47)
[2018-07-06] MEDS: Piperacillin/Tazobactam 3.375 GM in 0.9 % Sodium Chloride Mini Bag 100 ML IVPB SCH ×4 (00:11→23:50)
[2018-07-06] MEDS: 0.9 % Sodium Chloride 1,000 ML IVC SCH (00:20)
[2018-07-06] MEDS ORDERED: *HR* Metoprolol 5 MG/5 ML VIAL IVP ONE (00:53)
[2018-07-06] MEDS ORDERED: 0.9 % Sodium Chloride 500 ML IVC ONE (00:53)
--- NOTE | 2018-07-06 01:17 | Event Note ---
Date of Encounter: 07/06/18 Time of Encounter: 01:00 70-year-old male who is currently being treated for sepsis secondary to liver abscess status post drainage developed sudden onset of tachycardia 134. EKG shows A. fib with RVR without ST elevations. New-onset. Patient is asymptomatic otherwise. CHADSVasc score of 2 for age and hypertension. Likely triggered by ongoing sepsis. Labs from the morning reviewed, notable for potassium of 3.1 and lactic acid of 3.5. He is currently on normal saline at 125 mg per hour. Discussed at length with the patient regarding the anticoagulation which he did not want to commit at this point. We will change the IV fluid to normal saline with 40 mEq of potassium and PO supplement as well. Rate control with lopressor as the patient is already on Ca channel christi. Will also give 500ml of bolus of fluid given lactic acidosis noted during the daytime. Check eletrolytes, troponin. Echo in the morning.
[2018-07-06] MEDS: 0.9 % Sodium Chloride w KCl 40 MEQ/1,000 ML MLS IVC SCH ×3 (01:25→19:55)
[2018-07-06 01:43] LABS: Monocytes % 2.6 %; Red Cell Distribution Width 13.2 % (11.5-14.5)
[2018-07-06 01:44] LABS: Basophils % 0.2 %; Hematocrit 33.7 % (37.5-50.1); Hemoglobin 11.3 g/dL (12.9-16.9); Lymphocytes # 0.6 K/mcL (0.6-4.6); Lymphocytes % 2.2 %; Mean Corpuscular HGB Conc 33.5 g/dL (31.6-35.5); Mean Corpuscular Volume 86.4 fL (83.0-100.0); Mean Platelet Volume 10.5 fL (9.4-12.4); Monocytes # 0.7 K/mcL (0.0-1.3); Neutrophils # 24.4 K/mcL (1.6-8.9); Platelet Count 181 K/mcL (140-400)
[2018-07-06 01:45] LABS: Basophils # 0.1 K/mcL (0.0-0.2)
[2018-07-06 01:48] LABS: INR 1.7; Prothrombin Time 19.5 Seconds (9.4-12.1)
[2018-07-06 02:03] LABS: BUN/Creatinine Ratio 25 (6-26); Blood Urea Nitrogen 20 mg/dL (8-23); Carbon Dioxide 21 mEq/L (23-29); Chloride 111 mEq/L (98-107); Glucose 191 mg/dL (70-105); Osmolality,Calculated 296 (280-300); Potassium 2.9 mEq/L (3.5-5.1); Sodium 139 mEq/L (136-145); eGFR For Non-African Americans > 60 (> 60)
[2018-07-06 02:04] LABS: Platelet Estimate Normal (Normal)
[2018-07-06 02:08] LABS: Troponin I 0.04 ng/mL (< 0.04)
[2018-07-06] MEDS ORDERED: Aspirin 325 MG TABLET PO ONE (02:23)
[2018-07-06] MEDS ORDERED: Aspirin 81 MG TAB.CHEW PO ONE (02:45)
[2018-07-06] MEDS: Insulin LISPRO 300 UNITS/3 ML VIAL SQ SCH ×4 (07:43→20:03)
[2018-07-06 08:22] LABS: Troponin I < 0.03 ng/mL (< 0.04)
[2018-07-06] MEDS ORDERED: Sennosides/Docusate Sodium TABLET PO PRN (08:34)
--- NOTE | 2018-07-06 09:12 | Internal Med Progress Note ---
<ElvisCora M - Last Filed: 07/06/18 13:20> Hospitalist Progress Note - Encounter Date of Encounter: 07/06/18 Time of Encounter: 11:01 - Subjective Interval History: 73 y/o male hx HTN admitted for bacteremia due to liver abscess originally presented to ED for chest pain. Last night became tachycardic and found to be in A fib with RVR and cardizem drip started with continuos K repletion. This morning he denies chest pain, shortness of breath, palpitations. Denies fever chills, cough, or abdominal pain. - Exam Vitals: Temp Pulse Resp BP Pulse Ox 96.3 F L 109 16 116/81 92 07/06/18 07:02 07/06/18 07:02 07/06/18 07:02 07/06/18 07:02 07/06/18 07:02 Exam: General : pleasant, in no acute distress, A&Ox3 Cardiac: tachycardia, no murmurs or gallop Respiratory: CTAB no wheeze or rales Abdomen: Soft, not distended, no tenderness, no masses or organomegaly - bulb with minimal pink fluid Extremities: pulses intact, no pedal edema - Assessment and Plan (1) A-fib Current Visit: Yes Status: Acute Assessment and Plan: New onset in setting of sepsis - CAD-VAS2 score of 2 - Cardizem drip continue to this afternoon after it converted - stop Norvasc - start metoprolol PO - trending troponin of 0.04 then < 0.03 - start ASA 81mg (2) Hypokalemia Current Visit: Yes Status: Acute Assessment and Plan: Improving with potassium of 4.1 at noon from 2.9 early this morning - after IV K repletion of 40 meq (3) Sepsis Current Visit: Yes Status: Acute Assessment and Plan: Bactermia likely due to liver abscess : WBC continue to increase at 26.2 from 23.5 with 16.7 on admit - ID consulted - fluid abscess cultures grew gram negative rods: enterobacter cloace complex - fuild clx also grew gram positive cocci: streptococcus dysgalactie equisimilis - blood cultures also grew gram negative rods - continue zosyn, vanc and flagyl for broad coverage - pre-DM at baseline- continue ISS low (4) Liver abscess Current Visit: Yes Status: Acute Assessment and Plan: IR consulted and drained - see plan for sepsis (5) Adrenal mass Current Visit: Yes Status: Acute Assessment and Plan: follow up as outpatient (6) Lung nodule < 6cm on CT Current Visit: Yes Status: Acute Assessment and Plan: follow up as outpatient (7) Chest pain Current Visit: Yes Status: Resolved - Time Spent with Patient Total time spent is greater than 50% in coordination of care (as documented) at patient's floor/unit and/or counseling patient: Greater than 35 minutes Plan of Care Discussed with: patient Internal Medicine: Result - Labs CBC & Chem 7: 07/06/18 01:25 07/06/18 07:52 Labs: Short CBC 07/06/18 Range/Units 01:25 WBC 26.2 H (4.3-11.1) K/mcL Hgb 11.3 L (12.9-16.9) g/dL Hct 33.7 L (37.5-50.1) % Plt Count 181 (140-400) K/mcL Neutrophils # 24.4 H (1.6-8.9) K/mcL BMP 07/06/18 01:25 Sodium 139 Potassium 2.9 L Chloride 111 H Carbon Dioxide 21 L BUN 20 Creatinine 0.81 Glucose 191 H Calcium 8.0 L Cardiac Enzymes 07/06/18 07/06/18 Range/Units 01:25 07:52 Troponin I 0.04 H* < 0.03 (< 0.04) ng/mL - ABG Interpretation ABG results: PT/INR, D-dimer PT 19.5 Seconds (9.4-12.1) H 07/06/18 01:25 - VTE Documentation of Mechanical Device: Intermittent pneumatic compression device Consult Discharge Plan - Plan Referrals: Omar Tesfaye DO [Primary Care Provider] - <Azar Reyes - Last Filed: 07/06/18 14:08> Hospitalist Progress Note - Encounter Date of Encounter: 07/06/18 - Exam Vitals: Temp Pulse Resp BP Pulse Ox 97.8 F 105 20 112/71 92 07/06/18 11:13 07/06/18 11:13 07/06/18 11:13 07/06/18 11:13 07/06/18 11:13 - Time Spent with Patient Total time spent is greater than 50% in coordination of care (as documented) at patient's floor/unit and/or counseling patient: Internal Medicine: Result - Labs CBC & Chem 7: 07/06/18 01:25 07/06/18 07:52 Labs: Short CBC 07/06/18 Range/Units 01:25 WBC 26.2 H (4.3-11.1) K/mcL Hgb 11.3 L (12.9-16.9) g/dL Hct 33.7 L (37.5-50.1) % Plt Count 181 (140-400) K/mcL Neutrophils # 24.4 H (1.6-8.9) K/mcL BMP 07/06/18 07/06/18 01:25 07:52 Sodium 139 143 Potassium 2.9 L 4.1 D Chloride 111 H 115 H Carbon Dioxide 21 L 19 L BUN 20 22 Creatinine 0.81 0.81 Glucose 191 H 154 H Calcium 8.0 L 8.2 L Cardiac Enzymes 07/06/18 07/06/18 Range/Units 01:25 07:52 Troponin I 0.04 H* < 0.03 (< 0.04) ng/mL - ABG Interpretation ABG results: PT/INR, D-dimer PT 19.5 Seconds (9.4-12.1) H 07/06/18 01:25 - Attending Attestation I examined this patient and my medical decision-making was reviewed with the Resident Physician Dr. Leal. I agree with the documented findings, disposition and treatment plan as described except to the extent set forth below. Mr. Romero is a 73 y/o M who presented to ER with chest pain, fatigue and unintentional weight loss 8 lbs in [address] of abd showed hepatic abscess. Pt was admitted in the hospital and started him on empirical abx Zosyn , Vanc and Flagyl. This mroning he went for CT guided Liver biopsy and drainage of abscess. Had 70 cc puruelnt discharge.He is Resting comfortably on 3 lit O2 NC. Abd pain tolerable with pain meds. Tolerating pO intake well. He went into A fib with RVR last night, which got converted to NSR now with Cardizem gtt. He denied any CP. Had constipation x 4 days Gen: A, A, O x 3 Chest: Diminished BS b/l, mild wheezing no crackles, no rales Heart: S1S2+ RRR No murmurs Abd: Soft, Tendernes RUQ+, Drainage tube+ a/p 1. Severe sepsis 2. Hepatic abscess s/p CT guided I &D 3. Bacteremia with G-ve rods Blood cx - G-ve rods Fluid cx - Enterobacter coalce, Str. Dysgalactiae cont broad spec abx Zosyn , Flagyl and Vancomycin ID is on board 4. Acute Afib with RVR Triggered by sepsis resolved started on PO Metoprolol d.c cardizem gtt CHADSVASC score 2 and this event triggered by Sepsis, pt refused to go on anticoagulation so will continue him on AA 81mg for now 4. Acute hypoxic resp failure 5. Reactive airway disease / bronchospasm triggered by sepsis resolved d/c Steroids Maribell <Cora Leal - Last Filed: 07/06/18 13:20> (1) A-fib Qualifiers: Atrial fibrillation type: unspecified Qualified Code(s): I48.91 - Unspecified atrial fibrillation (3) Sepsis Qualifiers: Sepsis type: sepsis due to unspecified organism Qualified Code(s): A41.9 - Sepsis, unspecified organism
[2018-07-06] MEDS: Aspirin 81 MG TAB.CHEW PO SCH (11:22)
[2018-07-06 12:22] LABS: BUN/Creatinine Ratio 27 (6-26); Blood Urea Nitrogen 22 mg/dL (8-23); Calcium 8.2 mg/dL (8.6-10.3); Carbon Dioxide 19 mEq/L (23-29); Chloride 115 mEq/L (98-107); Glucose 154 mg/dL (70-105); Osmolality,Calculated 302 (280-300); Potassium 4.1 mEq/L (3.5-5.1); Sodium 143 mEq/L (136-145); eGFR For Non-African Americans > 60 (> 60)
[2018-07-07] MEDS: 0.9 % Sodium Chloride w KCl 40 MEQ/1,000 ML MLS IVC SCH (04:57)
[2018-07-07 05:26] LABS: Basophils % 0.2 %; Eosinophils % 0.1 %; Immature Granulocytes % 2.7 % (0-4)
[2018-07-07 05:27] LABS: Basophils # 0.1 K/mcL (0.0-0.2); Hematocrit 39.3 % (37.5-50.1); Hemoglobin 12.8 g/dL (12.9-16.9); Lymphocytes # 2.2 K/mcL (0.6-4.6); Lymphocytes % 7.5 %; Mean Corpuscular HGB Conc 32.6 g/dL (31.6-35.5); Mean Platelet Volume 10.6 fL (9.4-12.4); Monocytes # 0.7 K/mcL (0.0-1.3); Monocytes % 2.5 %; Platelet Count 266 K/mcL (140-400); Red Blood Count 4.57 M/mcL (4.19-5.50); Red Cell Distribution Width 13.5 % (11.5-14.5)
[2018-07-07 05:45] LABS: BUN/Creatinine Ratio 29 (6-26); Blood Urea Nitrogen 20 mg/dL (8-23); Calcium 8.3 mg/dL (8.6-10.3); Carbon Dioxide 22 mEq/L (23-29); Chloride 112 mEq/L (98-107); Glucose 93 mg/dL (70-105); Osmolality,Calculated 296 (280-300); Potassium 4.3 mEq/L (3.5-5.1); Sodium 142 mEq/L (136-145); eGFR For Non-African Americans > 60 (> 60)
[2018-07-07 05:52] LABS: Platelet Estimate Normal (Normal)
[2018-07-07] MEDS: Insulin LISPRO 300 UNITS/3 ML VIAL SQ SCH ×4 (07:17→21:19)
[2018-07-07] MEDS ORDERED: Isovue-370 500 ML INFUS..BTL IV ONE (08:13)
[2018-07-07] MEDS: Piperacillin/Tazobactam 3.375 GM in 0.9 % Sodium Chloride Mini Bag 100 ML IVPB SCH ×3 (08:36→23:28)
[2018-07-07] MEDS: MetroNIDAZOLE 500 MG/100 ML 500 MG/100 ML BAG IVPB SCH ×3 (08:37→23:27)
[2018-07-07] MEDS: Aspirin 81 MG TAB.CHEW PO SCH (08:38)
--- NOTE | 2018-07-07 10:07 | Internal Med Progress Note ---
<Cora Leal - Last Filed: 07/07/18 12:14> Hospitalist Progress Note - Encounter Date of Encounter: 07/07/18 Time of Encounter: 12:27 - Subjective Interval History: 73 y/o male hx HTN admitted for bacteremia due to liver abscess originally presented to ED for chest pain. he reports poor sleep due to frequent urination and request potassium fluids be stopped. He wants to got home. This morning he denies chest pain, shortness of breath, palpitations. Denies fever chills, cough , or abdominal pain. - Exam Vitals: Temp Pulse Resp BP Pulse Ox 97.5 F L 75 16 163/82 94 07/07/18 07:13 07/07/18 07:13 07/07/18 07:13 07/07/18 07:13 07/07/18 07:13 Exam: General : annoyed but stable, in no acute distress, A&Ox3 Cardiac: RRR no murmurs or gallop Respiratory: CTAB no wheeze or rales- accessory muscles use Abdomen: Soft, not distended, no tenderness, no masses or organomegaly Extremities: pulses intact, no pedal edema - Assessment and Plan (1) Sepsis Current Visit: Yes Status: Acute Assessment and Plan: likely source from liver abscess : worsening with increased WBC to 28.7 - vitals remain stable - ID consulted and will appreciate recommendations tomorrow - fluid abscess cultures grew gram negative rods: enterobacter cloace complex, E Coli -fluid clx also grew gram positive cocci: streptococcus dysgalactie equisimilis - blood cultures also grew gram negative rods - continue zosyn, flagyl and vanc - CT chest, abdomen, and pelvis with out contrast: abscess smaller and improved (2) Liver abscess Current Visit: Yes Status: Acute (3) Hypokalemia Current Visit: Yes Status: Acute Assessment and Plan: resolved with K 4.3 - discontinue IV potassium replete (4) Adrenal mass Current Visit: Yes Status: Acute Assessment and Plan: stable on CT-follow up as out patient (5) Lung nodule < 6cm on CT Current Visit: Yes Status: Acute Assessment and Plan: stable on CT-follow up as out patient (6) A-fib Current Visit: Yes Status: Acute Assessment and Plan: converted yesterday - continue metoprolol (7) Chest pain Current Visit: Yes Status: Resolved - Time Spent with Patient Total time spent is greater than 50% in coordination of care (as documented) at patient's floor/unit and/or counseling patient: Greater than 35 minutes Plan of Care Discussed with: patient Internal Medicine: Result - Labs CBC & Chem 7: 07/07/18 05:03 07/07/18 05:03 Labs: Short CBC 07/07/18 Range/Units 05:03 WBC 28.7 H (4.3-11.1) K/mcL Hgb 12.8 L D (12.9-16.9) g/dL Hct 39.3 (37.5-50.1) % Plt Count 266 (140-400) K/mcL Neutrophils # 25.0 H (1.6-8.9) K/mcL BMP 07/06/18 07/07/18 07:52 05:03 Sodium 143 142 Potassium 4.1 D 4.3 Chloride 115 H 112 H Carbon Dioxide 19 L 22 L BUN 22 20 Creatinine 0.81 0.70 Glucose 154 H 93 Calcium 8.2 L 8.3 L Cardiac Enzymes 07/06/18 Range/Units 07:52 Troponin I < 0.03 (< 0.04) ng/mL - ABG Interpretation ABG results: PT/INR, D-dimer PT 19.5 Seconds (9.4-12.1) H 07/06/18 01:25 - VTE Documentation of Mechanical Device: Intermittent pneumatic compression device Consult Discharge Plan - Plan Referrals: Omar Tesfaye DO [Primary Care Provider] - <Azar Reyes - Last Filed: 07/07/18 13:03> Hospitalist Progress Note - Encounter Date of Encounter: 07/07/18 - Exam Vitals: Temp Pulse Resp BP Pulse Ox 97.8 F 78 19 156/78 95 07/07/18 11:24 07/07/18 11:24 07/07/18 11:24 07/07/18 11:24 07/07/18 11:24 - Time Spent with Patient Total time spent is greater than 50% in coordination of care (as documented) at patient's floor/unit and/or counseling patient: Internal Medicine: Result - Labs CBC & Chem 7: 07/07/18 05:03 07/07/18 05:03 Labs: Short CBC 07/07/18 Range/Units 05:03 WBC 28.7 H (4.3-11.1) K/mcL Hgb 12.8 L D (12.9-16.9) g/dL Hct 39.3 (37.5-50.1) % Plt Count 266 (140-400) K/mcL Neutrophils # 25.0 H (1.6-8.9) K/mcL BMP 07/07/18 05:03 Sodium 142 Potassium 4.3 Chloride 112 H Carbon Dioxide 22 L BUN 20 Creatinine 0.70 Glucose 93 Calcium 8.3 L - ABG Interpretation ABG results: PT/INR, D-dimer PT 19.5 Seconds (9.4-12.1) H 07/06/18 01:25 - Impressions Impressions Echocardiogram 07/06/18 01:17 Impressions: LVEF 55-60%. Normal LV chamber size, wall thickness and function. Mild left ventricular diastolic dysfunction. Normal right ventricular structure and function. No evidence of pulmonary hypertension. No significant valvular dysfunction. Left Ventricular Wall Motion: Rest Echo Findings All wall segments showed normal motion. Findings: Study Quality * Technically adequate exam. ECG Findings * Normal sinus rhythm. Left Ventricle * LVEF 55-60%. * Normal LV chamber size, wall thickness and function. * Mild left ventricular diastolic dysfunction. Right Ventricle * Normal right ventricular structure and function. Left Atrium * Mildly dilated left atrium. Right Atrium * Normal right atrial size. Aortic Valve * Aortic valve not well visualized. * No aortic regurgitation. * No aortic stenosis. Mitral Valve * Normal mitral valve structure and function. * No mitral regurgitation. * No mitral stenosis. Tricuspid Valve * Normal tricuspid valve structure and function. * Trace tricuspid regurgitation. * No evidence of pulmonary hypertension. Pulmonic Valve * Pulmonic valve not well visualized. Aorta * Normally sized aortic root. Pericardium * The pericardium appears normal. IVC * Normal IVC dimensions and inspiratory collapse. Pulmonary Artery * Normal visualized portions of the main pulmonary artery. Abdomen/Pelvis CT 07/07/18 09:30 IMPRESSION: 1. Bilobed versus confluent adjacent right hepatic lobe abscesses measure smaller than previously and overall appear much improved. No complicating factor evident related to drainage placement. 2. Interval development of small bilateral pleural effusion with bibasilar relaxation atelectasis. Focal pneumonitis cannot be excluded at the lung bases. 3. Calcific atherosclerosis aorta and coronary arteries. 4. Stable nonspecific 9 mm pulmonary nodule posterior right upper lobe. This should be followed with unenhanced CT chest in 6-12 months. 5. Periampullary duodenal diverticulum. 6. Calcific atherosclerotic disease aorta. 7. Benign right adrenal adenoma. 8. Diverticulosis coli without CT evidence of acute diverticulitis. D/ / Imtiaz Stoddard / Imtiaz Stoddard Interpreting Provider: Imtiaz Stoddard Chest CT 07/07/18 09:30 IMPRESSION: 1. Bilobed versus confluent adjacent right hepatic lobe abscesses measure smaller than previously and overall appear much improved. No complicating factor evident related to drainage placement. 2. Interval development of small bilateral pleural effusion with bibasilar relaxation atelectasis. Focal pneumonitis cannot be excluded at the lung bases. 3. Calcific atherosclerosis aorta and coronary arteries. 4. Stable nonspecific 9 mm pulmonary nodule posterior right upper lobe. This should be followed with unenhanced CT chest in 6-12 months. 5. Periampullary duodenal diverticulum. 6. Calcific atherosclerotic disease aorta. 7. Benign right adrenal adenoma. 8. Diverticulosis coli without CT evidence of acute diverticulitis. D/ / Imtiaz Stoddard / Imtiaz Stoddard Interpreting Provider: Imtiaz Stoddard - Attending Attestation I examined this patient and my medical decision-making was reviewed with the Resident Physician Dr. Leal. I agree with the documented findings, disposition and treatment plan as described except to the extent set forth below. Mr. Romero is a 73 y/o M who presented to ER with chest pain, fatigue and unintentional weight loss 8 lbs in [address] of abd showed hepatic abscess. Pt was admitted in the hospital and started him on empirical abx Zosyn , Vanc and Flagyl. This mroning he went for CT guided Liver biopsy and drainage of abscess. Had 70 cc puruelnt discharge.He is Resting comfortably on 3 lit O2 NC. Abd pain tolerable with pain meds. Tolerating PO intake well. He went into A fib with RVR on 07/05/18 which converted back NSR few hrs later. He denied any CP. Had BM y/d Gen: A, A, O x 3 Chest: Diminished BS b/l, mild wheezing no crackles, no rales Heart: S1S2+ RRR No murmurs Abd: Soft, Tenderness RUQ+, Drainage tube+ a/p 1. Severe sepsis 2. Hepatic abscess s/p CT guided I &D 3. Bacteremia with Bacteroides Blood cx - Bacteroides Fluid cx - Enterobacter coalce, Str. Dysgalactiae and E. Coli WBC still trending high Ordered repeat CT of Abd which showed improved hepatic abscess cont broad spec abx Zosyn , Flagyl and Vancomycin ID is on board 4. Acute Afib with RVR Triggered by sepsis resolved Cont on PO Metoprolol CHADSVASC score 2 and this event triggered by Sepsis, pt refused to go on anticoagulation so will continue him on ASA 81mg for now 4. Acute hypoxic resp failure 5. Reactive airway disease / bronchospasm triggered by sepsis resolved d/c Steroids Duoneb <Cora Leal - Last Filed: 07/07/18 12:14> (1) Sepsis Qualifiers: Sepsis type: sepsis due to unspecified organism Qualified Code(s): A41.9 - Sepsis, unspecified organism (6) A-fib Qualifiers: Atrial fibrillation type: unspecified Qualified Code(s): I48.91 - Unspecified atrial fibrillation
[2018-07-07] MEDS ORDERED: Aminoglycoside Consult 1 EACH MC ONE (14:00)
[2018-07-07] MEDS ORDERED: *HR* LORazepam 0.5 MG TABLET PO PRN (17:18)
[2018-07-07] MEDS: Melatonin 3 MG TABLET PO SCH (21:24)
[2018-07-08 05:18] LABS: Basophils # 0.1 K/mcL (0.0-0.2); Basophils % 0.6 %; Eosinophils # 0.1 K/mcL (0.0-0.6); Eosinophils % 0.5 %; Hematocrit 43.7 % (37.5-50.1); Hemoglobin 14.1 g/dL (12.9-16.9); Immature Granulocytes % 4.4 % (0-4); Lymphocytes # 2.3 K/mcL (0.6-4.6); Lymphocytes % 13.3 %; Mean Corpuscular HGB Conc 32.3 g/dL (31.6-35.5); Mean Corpuscular Volume 86.9 fL (83.0-100.0); Mean Platelet Volume 10.7 fL (9.4-12.4); Monocytes # 0.6 K/mcL (0.0-1.3); Monocytes % 3.6 %; Neutrophils # 13.5 K/mcL (1.6-8.9); Platelet Count 272 K/mcL (140-400); Red Blood Count 5.03 M/mcL (4.19-5.50); Red Cell Distribution Width 13.3 % (11.5-14.5); Segmented Neutrophils % 77.6 %
[2018-07-08 05:41] LABS: BUN/Creatinine Ratio 27 (6-26); Blood Urea Nitrogen 20 mg/dL (8-23); Calcium 8.3 mg/dL (8.6-10.3); Carbon Dioxide 23 mEq/L (23-29); Chloride 107 mEq/L (98-107); Glucose 98 mg/dL (70-105); Osmolality,Calculated 287 (280-300); Potassium 3.7 mEq/L (3.5-5.1); Sodium 137 mEq/L (136-145); eGFR For Non-African Americans > 60 (> 60)
[2018-07-08] MEDS: Insulin LISPRO 300 UNITS/3 ML VIAL SQ SCH ×4 (07:47→21:04)
[2018-07-08] MEDS: Aspirin 81 MG TAB.CHEW PO SCH (08:20)
[2018-07-08] MEDS: Piperacillin/Tazobactam 3.375 GM in 0.9 % Sodium Chloride Mini Bag 100 ML IVPB SCH ×3 (08:20→23:38)
[2018-07-08] MEDS: MetroNIDAZOLE 500 MG/100 ML 500 MG/100 ML BAG IVPB SCH (08:20)
--- NOTE | 2018-07-08 09:57 | Discharge Summary ---
<Azar Reyes - Last Filed: 07/08/18 14:55> Orders not resulted at time of discharge: Pending orders 07/04/18 Culture,Anaerobic [RM] Routine 07/04/18 12:38 Culture,Blood [BC] Stat 07/09/18 04:00 Basic Metabolic Panel AM 0400 Complete Blood Count [HEME] AM 0400 Date of Encounter: 07/08/18 - Discharge Diagnosis (1) Sepsis Priority: Primary Status: Acute Qualifiers: Sepsis type: sepsis due to unspecified organism Qualified Code(s): A41.9 - Sepsis, unspecified organism (2) Liver abscess Priority: Primary Status: Acute (3) Bacteremia Priority: Secondary Status: Acute Hospital course: Mr. Romero is a 73 year old male - Time Spent with Patient Total time spent providing and/or coordinating discharge services: - Discharge Medications Prescriptions: Aspirin 81 mg PO DAILY #30 tab.chew Metoprolol [Lopressor] 25 mg PO BID 30 Days #30 tablet Pesvtdxnfljm-Vjjk-Lrqsczcc,Iso [Zosyn 4.5 gm/100 ml Galaxy Bag] 4.5 gm IV Q8H # 84 froz.piggy Home Medications: Amlodipine Besylate 10 mg PO DAILY 07/03/18 [History] Buspirone HCl [Buspar] 10 mg PO DAILY 07/03/18 [History] Omeprazole [PriLOSEC] 20 mg PO DAILY 07/03/18 [History] Aspirin 81 mg PO DAILY #30 tab.chew 07/08/18 [Rx] Metoprolol [Lopressor] 25 mg PO BID 30 Days #30 tablet 07/08/18 [Rx] Eviazmsgkxlb-Ztdm-Hcayhkmi,Iso [Zosyn 4.5 gm/100 ml Galaxy Bag] 4.5 gm IV Q8H # 84 froz.piggy 07/08/18 [Rx] Allergies/Adverse Reactions: 3 Allergy/AdvReac Type Severity Reaction Status Date / Time No Known Allergies Allergy Verified 07/03/18 18:26 Date of admission: 07/03/18 20:38 Primary care physician: Omar Tesfaye DO Consults: 07/03/18 20:45 Consult to Interventional Radiology [CONS] Routine Consulting Provider: Radiology Interventional Cols Reason for Consult: 7.1cm liver abscess, consult called from ER. Call Completed: Yes 07/04/18 11:35 Consult to Infectious Diseases [CONS] Routine Consulting Provider: Infectious Disease [place] Reason for Consult: liver abscess Call Completed: Yes 07/08/18 09:39 Consult to Invasive Line Access Team [CONS] Routine Reason for Consult: PICC insert Line Type: PICC 07/08/18 09:52 Consult to Interventional Radiology [CONS] Routine Consulting Provider: Radiology Interventional Cols Reason for Consult: remove liver drain Call Completed: Yes 07/08/18 11:06 Consult to Wood Gouger [CONS] Routine Reason for SW Consult: home with IV abx 07/08/18 11:58 Consult to Invasive Line Access Team [CONS] Routine Reason for Consult: IV zosyn Line Type: Midline 07/08/18 14:29 Consult to Invasive Line Access Team [CONS] Routine Reason for Consult: home atb Line Type: Midline - Constitutional Vitals: Temp Pulse Resp BP Pulse Ox 97.8 F 52 16 156/74 95 07/08/18 11:01 07/08/18 11:01 07/08/18 11:01 07/08/18 11:01 07/08/18 11:01 - Patient Status Disposition: Home Health Service Condition: Good - Discharge Instructions Follow Up With: Angelia Alvarez CNP [Advanced Practice Nurse] - 07/23/18 9:20 am (Please follow up as schedule...) Omar Tesfaye DO [Primary Care Provider] - 07/15/18 1:00 pm (Please follow up as schedule...) - Attending Attestation I examined this patient and my medical decision-making was reviewed with the Resident Physician Dr. Leal. I agree with the documented findings, disposition and treatment plan as described except to the extent set forth below. Mr. Romero is a 73 y/o M who presented to ER with chest pain, fatigue and unintentional weight loss 8 lbs in [address] of abd showed hepatic abscess. Pt was admitted in the hospital and started him on empirical abx Zosyn , Vanc and Flagyl. This mroning he went for CT guided Liver biopsy and drainage of abscess. Had 70 cc puruelnt discharge.He is Resting comfortably on 3 lit O2 NC. Abd pain tolerable with pain meds. Tolerating PO intake well. He went into A fib with RVR on 07/05/18 which converted back NSR few hrs later. He denied any CP. Gen: A, A, O x 3 Chest: Diminished BS b/l, mild wheezing no crackles, no rales Heart: S1S2+ RRR No murmurs Abd: Soft, Tenderness RUQ+, Drainage tube+ a/p 1. Severe sepsis 2. Hepatic abscess s/p CT guided I &D 3. Bacteremia with Bacteroides Blood cx - Bacteroides Fluid cx - Enterobacter colace, Str. Dysgalactiae and E. Coli WBC started trending down Repeat CT of Abd which showed improved hepatic abscess ID recommend IV Zosyn for 2 weeks 4. Acute Afib with RVR Triggered by sepsis resolved Cont on PO Metoprolol CHADSVASC score 2 and this event triggered by Sepsis, pt refused to go on anticoagulation so will continue him on ASA 81mg for now 4. Acute hypoxic resp failure 5. Reactive airway disease / bronchospasm triggered by sepsis resolved Duoneb Medically stable to d/c home with IV Abx Zosyn x 2 weeks. CM working on home abx infusion arrangements <Cora Leal - Last Filed: 07/08/18 17:12> - NOTES TO OUTPATIENT PROVIDER Notes to Outpatient Provider: He must follow up for lung nodule and adrenal mass as out patient. Started on metropolol for A. Fib. Discharged home on IV zosyn for at least 4 weeks to treat liver abscess. Orders not resulted at time of discharge: Pending orders 07/04/18 Culture,Anaerobic [RM] Routine 07/04/18 12:38 Culture,Blood [BC] Stat 07/06/18 00:34 EKG [ECG 12 lead ECG] [ECG] Stat 07/09/18 04:00 Basic Metabolic Panel AM 0400 Complete Blood Count [HEME] AM 0400 Date of Encounter: 07/08/18 Time of Encounter: 09:57 - Discharge Diagnosis (1) Sepsis Priority: Secondary Status: Acute Qualifiers: Sepsis type: sepsis due to unspecified organism Qualified Code(s): A41.9 - Sepsis, unspecified organism (2) Liver abscess Priority: Primary Status: Acute (3) Hypokalemia Priority: Secondary Status: Acute (4) Adrenal mass Priority: Secondary Status: Acute (5) Lung nodule < 6cm on CT Priority: Secondary Status: Acute (6) A-fib Priority: Secondary Status: Acute Qualifiers: Atrial fibrillation type: unspecified Qualified Code(s): I48.91 - Unspecified atrial fibrillation (7) Chest pain Priority: Secondary Status: Resolved Hospital course: Mr. Romero is a 73 year old male hx HTN and pre-diabetic admitted after liver abscess found incidentally when presented to ED for chest pain. IR consulted and after aspiration procedure he had episode of shortness and breath with wheezing treated with steroids and Benadryl then moved to ICU for concerns of sepsis. ID consulted and treated with broad coverage antibiotics with IV vanc, zosyn and flagyl. Abscess cl grew enterobacter cloace complex and streptococcus dysgalactie equisimilis. Blood clx grew bacteroides fragilis and gram negative rods. He continued to appear clinically well despite transient elevated temperature and WBC up to 26.2. During night of 07-05, he became tachycardic without symptoms and found to be in new onset A fib with RVR. Cardizem drip started and converted next day switched to metoprolol. Trended troponins 0.04 and < 0.03. His TAWANA-VAS2 score of 2- started back on ASA 81 mg. Hypokalemia with K 2.9 treated with 40meq IV and returned to 4.1. Repeat CT abdomen, pelvis , and chest on 07-07 showed decrease size in abscess and stable nodules. Appreciate IDs recommendations for IV antibiotics of at least four weeks at home. He will have midline placed by picc team and discharged with home health for infusion. On Discharge, he has no complaints of pain : K 3.7 from low of 2.9 and admit of 3.6. WBC 17.4 from 28.7 at highest and on admit 16.7. Discharge discussed with: patient Time spent discussing smoking cessation with patient: 3 to 10 minutes - Time Spent with Patient Total time spent providing and/or coordinating discharge services: Greater than 30 minutes Date of admission: 07/03/18 20:38 Primary care physician: Omar Tesfaye DO Consults: 07/03/18 20:45 Consult to Interventional Radiology [CONS] Routine Consulting Provider: Radiology Interventional Cols Reason for Consult: 7.1cm liver abscess, consult called from ER. Call Completed: Yes 07/04/18 11:35 Consult to Infectious Diseases [CONS] Routine Consulting Provider: Infectious Disease [place] Reason for Consult: liver abscess Call Completed: Yes 07/08/18 09:39 Consult to Invasive Line Access Team [CONS] Routine Reason for Consult: PICC insert Line Type: PICC 07/08/18 09:52 Consult to Interventional Radiology [CONS] Routine Consulting Provider: Radiology Interventional Cols Reason for Consult: remove liver drain Call Completed: Yes Discharging clinician: Cora Leal Anticipated date of discharge: 07/08/18 - Constitutional Vitals: Temp Pulse Resp BP Pulse Ox 97.9 F 65 16 167/87 94 07/08/18 07:03 07/08/18 07:03 07/08/18 07:03 07/08/18 07:03 07/08/18 07:03 General appearance: Present: cooperative, A&O X 3, pleasant, no acute distress, answers questions appropriately Exam: wnl - Head Head exam: Present: atraumatic, normocephalic - Respiratory Respiratory exam: Present: accessory muscle use, CTAB. Absent: respiratory distress, stridor, wheezes - Cardiovascular Cardiovascular exam: Present: RRR. Absent: gallop, rubs - GI/Abdominal GI/Abdominal exam: Present: normal bowel sounds, soft. Absent: guarding, mass, tenderness - Extremities Exam Extremities exam: Present: normal inspection, radial pulses palpable and symmetrical. Absent: pedal edema - Psychiatric Psychiatric exam: Present: agitated, normal affect, normal mood - Patient Status Functional capacity at discharge: independent ambulation Overall status at discharge: patient is progressing back to baseline - Diet and Activity Activity: increase activity as tolerated Diet: advance to your usual diet - VTE Documentation of Mechanical Device: Intermittent pneumatic compression device
--- NOTE | 2018-07-08 09:58 | Physician Discharge Referral ---
Home Health/Hosp Referral Info Transfer to: Home Health (IV antibiotics) Attending Provider: Azar Reyes Provider in Charge Post Discharge: PCP (Follow up with ID as out patient for management of IV medications) - Diagnosis (1) Sepsis Status: Acute (2) Liver abscess Status: Acute (3) Hypokalemia Status: Acute (4) Adrenal mass Status: Acute (5) Lung nodule < 6cm on CT Status: Acute (6) A-fib Status: Acute (7) Chest pain Status: Resolved - Respiratory Orders None Smoking Cessation: Smoking cessation has been advised. For more information, call the Sold Quit Line at 3-586-DHBY-NOW. - Diet/Nutrition Diet/Nutrition Orders: Regular - Activity Activity Orders: Ambulate - Services Needed Following services are medically necessary services: Home Infusion (IV zosyn) - Transfer Medications Prescriptions: Aspirin 81 mg PO DAILY #30 tab.chew Metoprolol [Lopressor] 25 mg PO BID 30 Days #30 tablet Ndkhpkidkhnq-Ybrd-Ethqliul,Iso [Zosyn 4.5 gm/100 ml Galaxy Bag] 4.5 gm IV Q8H # 84 froz.piggy Home Medications: Amlodipine Besylate 10 mg PO DAILY 07/03/18 [History] Buspirone HCl [Buspar] 10 mg PO DAILY 07/03/18 [History] Omeprazole [PriLOSEC] 20 mg PO DAILY 07/03/18 [History] Aspirin 81 mg PO DAILY #30 tab.chew 07/08/18 [Rx] Metoprolol [Lopressor] 25 mg PO BID 30 Days #30 tablet 07/08/18 [Rx] Rpzoelgajoob-Yehs-Bjdrrobd,Iso [Zosyn 4.5 gm/100 ml Galaxy Bag] 4.5 gm IV Q8H # 84 froz.piggy 07/08/18 [Rx] Allergies/Adverse Reactions: 3 Allergy/AdvReac Type Severity Reaction Status Date / Time No Known Allergies Allergy Verified 07/03/18 18:26 Certification: Further, I certify that my clinical findings support that this patient is homebound (i.e. absences from home require considerable and taxing effort and are for medical reasons or synagogue services or infrequently or short duration when for other reasons) because: Homebound Reason: Patient requires assistance of a person or device to safely leave home (IV zosyn) Attestation: My signature below is to certify that this patient is under my care and that I, or nurse practitioner, or a physician's reference assistant working with me, has a face-to -face encounter with this patient.
--- NOTE | 2018-07-08 10:37 | IR Progress Note ---
Patient reports: no new complaints Vital Signs: Vital Signs/O2 Sat, Most Current Temp Pulse Resp BP Pulse Ox 97.9 F 65 16 167/87 94 07/08/18 07:03 07/08/18 07:03 07/08/18 07:03 07/08/18 07:03 07/08/18 07:03 Recent Labs: Lab Results 07/08/18 07/08/18 07/07/18 04:33 04:33 05:03 WBC 17.4 H RBC 5.03 Hgb 14.1 Hct 43.7 MCV 86.9 MCH 28.0 MCHC 32.3 RDW 13.3 Plt Count 272 MPV 10.7 Neutrophils # 13.5 H Lymphocytes # 2.3 Monocytes # 0.6 Eosinophils # 0.1 Basophils # 0.1 Sodium 137 142 Potassium 3.7 4.3 Chloride 107 112 H Carbon Dioxide 23 22 L BUN 20 20 Creatinine 0.75 0.70 Est GFR ( Amer) > 60 > 60 Est GFR (Non-Af Amer) > 60 > 60 BUN/Creatinine Ratio 27 H 29 H Glucose 98 93 Lactic Acid Calcium 8.3 L 8.3 L 07/07/18 07/06/18 07/06/18 05:03 07:52 07:52 WBC 28.7 H RBC 4.57 Hgb 12.8 L D Hct 39.3 MCV 86.0 MCH 28.0 MCHC 32.6 RDW 13.5 Plt Count 266 MPV 10.6 Neutrophils # 25.0 H Lymphocytes # 2.2 Monocytes # 0.7 Eosinophils # 0.0 Basophils # 0.1 Sodium 143 Potassium 4.1 D Chloride 115 H Carbon Dioxide 19 L BUN 22 Creatinine 0.81 Est GFR ( Amer) > 60 Est GFR (Non-Af Amer) > 60 BUN/Creatinine Ratio 27 H Glucose 154 H Lactic Acid 1.2 Calcium 8.2 L 07/06/18 07/06/18 01:25 01:25 WBC 26.2 H RBC 3.90 L Hgb 11.3 L Hct 33.7 L MCV 86.4 MCH 29.0 MCHC 33.5 RDW 13.2 Plt Count 181 MPV 10.5 Neutrophils # 24.4 H Lymphocytes # 0.6 Monocytes # 0.7 Eosinophils # 0.0 Basophils # 0.1 Sodium 139 Potassium 2.9 L Chloride 111 H Carbon Dioxide 21 L BUN 20 Creatinine 0.81 Est GFR ( Amer) > 60 Est GFR (Non-Af Amer) > 60 BUN/Creatinine Ratio 25 Glucose 191 H Lactic Acid Calcium 8.0 L Assessment and Plan 73 y/o male status post liver drain placement due to a hepatic abscess. CT shows significant decrease in size of the abscess, which is mostly resolved. The patient is requesting to have the drain removed today. I flushed the drain and only serosanguinous fluid was aspirated. No evidence of pus. Outputs of the drain have been minimal. Therefore, the drain was pulled. I discussed with the patient and his that he will likely need terminal supervisor antibiotics. There is also a possibility that the the abscess could recur. They had no further questions at the conclusion of our encounter. Korey Andersen MD
--- NOTE | 2018-07-08 11:39 | Infectious Disease Progress No ---
Date of Encounter: 07/09/18 Time of Encounter: 11:37 - Assessment and Plan (1) Sepsis Current Visit: Yes Status: Acute Severe sepsis: The patient developed tachycardia, low-grade fever, and tachypnea post-procedure. He also had leukocytosis on admission. Lactic acid elevated and was a little hypotensive yesterday. Likely secondary to liver abscess and bacteremia. Improved. Afebrile. WBC trending down. Tachycardic over the weekend, but resolved. Blood cultures drawn 07/03/18 are positive 2/2 sets for Bacteroides fragilis. Repeat blood cultures drawn 07/04/18 are NGTD x 2 sets. Qualifiers: Sepsis type: sepsis due to unspecified organism Qualified Code(s): A41.9 - Sepsis, unspecified organism (2) Bacteremia Current Visit: Yes Status: Acute Causative organism unclear, but appears to be a GNR. Unsure if this is secondary to liver abscess or if liver abscess is sequelae of bacteremia. Blood cultures drawn 07/03/18 are positive 2/2 sets for Bacteroides fragilis. Susceptibilities are pending, but per micro will take 5-7 days. Repeat blood cultures drawn 07/04/18 are NGTD x 2 sets. Continue Zosyn 3.375 grams IV Q8H. Duration of treatment depends on the clinical picture, but the patient will require a prolonged course of IV antibiotics for his liver abscess. Monitor renal function and for drug toxicity and dose-adjust antibiotics. (3) Liver abscess Current Visit: Yes Status: Acute Etiology: Unclear. The patient has bacteremia, so unclear if this is the source of his bacteremia or sequelae. The patient's CT scan shows diverticulosis without diverticulitis and the patient has no known cases of diverticulitis, although this could be a possible cause of the patient's liver abscess. Causative organism: E. cloacae, E. coli, Strep dysgalactiae, and likely anaerobes based on blood cultures. CT of the abdomen and pelvis showed a 7.1cm liver abscess. IR consulted. Status post CT-guided drain placement with approximately 70ml of pus drained 07/04/18. Culture positive for Enterobacter cloacae, Strep dysgalactiae, and E. coli. Continue Zosyn 3.375 grams IV Q8H. Discontinue Vanc. Duration of treatment depends on the clinical picture, but likely 4 weeks of IV antibiotics followed by two weeks of PO. Recommend Zosyn 4.5 grams IV Q8H on discharge. Monitor renal function and for drug toxicity and dose-adjust antibiotics. Consult VAT for midline placement. Will need weekly CBC, BUN/Cr, ESR, and CRP. Will need weekly midline care per protocol. Follow up with ID 07/23/18 at 0920. (4) Lactic acidosis Current Visit: Yes Status: Acute Likely secondary to sepsis. Resolved. (5) Elevated troponin Current Visit: Yes Status: Acute Troponin 0.06/0.03/0.03. Consider cardiology consult. (6) Adrenal mass Current Visit: Yes Status: Acute Etiology unclear, but does not appear infectious. Further workup and management per the primary team. (7) Lung nodule < 6cm on CT Current Visit: Yes Status: Acute CT chest showed a 9.1mm RUL nodule. Pulmonology follow-up as an outpatient. (8) GERD (gastroesophageal reflux disease) Current Visit: Yes Status: Chronic Qualifiers: Esophagitis presence: esophagitis presence not specified Qualified Code(s) : K21.9 - Gastro-esophageal reflux disease without esophagitis - Subjective Interval history: Patient seen and examined. No acute events noted overnight. Patient sitting up in bed with at bedside. States he feels better this morning and wants to go home. Denies pain. Denies chest pain, shortness of breath, or cough. Denies nausea, vomiting, or diarrhea. Denies urinary complaints and states he ate a little bit of breakfast this morning. Denies oral thrush or skin lesions. Infect Dis PN-Objective Data - Labs CBC & Chem 7: 07/09/18 05:06 07/09/18 05:06 Labs: Laboratory Results - last 24 hr 07/07/18 07/07/18 07/07/18 07:11 11:23 16:02 WBC RBC Hgb Hct MCV MCH MCHC RDW Plt Count MPV Immature Gran % Seg Neutrophils % Lymphocytes % Monocytes % Eosinophils % Basophils % Neutrophils # Lymphocytes # Monocytes # Eosinophils # Basophils # Sodium Potassium Chloride Carbon Dioxide BUN Creatinine Est GFR ( Amer) Est GFR (Non-Af Amer) BUN/Creatinine Ratio Glucose POC Glucose 78 80 105 H Calculated Osmolality Calcium Vancomycin Trough 07/07/18 07/07/18 07/08/18 20:01 21:28 04:33 WBC 17.4 H RBC 5.03 Hgb 14.1 Hct 43.7 MCV 86.9 MCH 28.0 MCHC 32.3 RDW 13.3 Plt Count 272 MPV 10.7 Immature Gran % 4.4 H Seg Neutrophils % 77.6 Lymphocytes % 13.3 Monocytes % 3.6 Eosinophils % 0.5 Basophils % 0.6 Neutrophils # 13.5 H Lymphocytes # 2.3 Monocytes # 0.6 Eosinophils # 0.1 Basophils # 0.1 Sodium Potassium Chloride Carbon Dioxide BUN Creatinine Est GFR ( Amer) Est GFR (Non-Af Amer) BUN/Creatinine Ratio Glucose POC Glucose 143 H Calculated Osmolality Calcium Vancomycin Trough 13 H 07/08/18 04:33 WBC RBC Hgb Hct MCV MCH MCHC RDW Plt Count MPV Immature Gran % Seg Neutrophils % Lymphocytes % Monocytes % Eosinophils % Basophils % Neutrophils # Lymphocytes # Monocytes # Eosinophils # Basophils # Sodium 137 Potassium 3.7 Chloride 107 Carbon Dioxide 23 BUN 20 Creatinine 0.75 Est GFR ( Amer) > 60 Est GFR (Non-Af Amer) > 60 BUN/Creatinine Ratio 27 H Glucose 98 POC Glucose Calculated Osmolality 287 Calcium 8.3 L Vancomycin Trough Cultures: Cultures 07/04/18 Unknown Body Fluid Culture - Final Other-Specify in Comments Enterobacter cloacae complex Str. dysgalactiae equisimilis Escherichia coli 07/04/18 12:38 Blood Culture - Preliminary Peripheral Venipuncture Culture is incubating and being continuously monitored for growth. Final report to follow. 07/04/18 12:38 Blood Culture - Preliminary Peripheral Venipuncture Culture is incubating and being continuously monitored for growth. Final report to follow. - Impressions Impressions Echocardiogram 07/06/18 01:17 Impressions: LVEF 55-60%. Normal LV chamber size, wall thickness and function. Mild left ventricular diastolic dysfunction. Normal right ventricular structure and function. No evidence of pulmonary hypertension. No significant valvular dysfunction. Left Ventricular Wall Motion: Rest Echo Findings All wall segments showed normal motion. Findings: Study Quality * Technically adequate exam. ECG Findings * Normal sinus rhythm. Left Ventricle * LVEF 55-60%. * Normal LV chamber size, wall thickness and function. * Mild left ventricular diastolic dysfunction. Right Ventricle * Normal right ventricular structure and function. Left Atrium * Mildly dilated left atrium. Right Atrium * Normal right atrial size. Aortic Valve * Aortic valve not well visualized. * No aortic regurgitation. * No aortic stenosis. Mitral Valve * Normal mitral valve structure and function. * No mitral regurgitation. * No mitral stenosis. Tricuspid Valve * Normal tricuspid valve structure and function. * Trace tricuspid regurgitation. * No evidence of pulmonary hypertension. Pulmonic Valve * Pulmonic valve not well visualized. Aorta * Normally sized aortic root. Pericardium * The pericardium appears normal. IVC * Normal IVC dimensions and inspiratory collapse. Pulmonary Artery * Normal visualized portions of the main pulmonary artery. Exam - Constitutional Vitals: Temp Pulse Resp BP Pulse Ox 97.8 F 52 16 156/74 95 07/08/18 11:01 07/08/18 11:01 07/08/18 11:01 07/08/18 11:01 07/08/18 11:01 General appearance: average body habitus, cooperative, no acute distress - Head Head exam: Present: atraumatic, normal inspection, normocephalic - Eye Eye exam: Present: EOMI, normal appearance, PERRL Pupils: Present: normal accommodation - ENT ENT exam: Present: mucous membranes moist - Neck Neck exam: Present: normal inspection - Respiratory Respiratory exam: Present: CTAB. Absent: rales, respiratory distress, rhonchi, wheezes - Cardiovascular Cardiovascular exam: Present: irregular rhythm. Absent: tachycardia - GI/Abdominal GI/Abdominal exam: Present: normal bowel sounds, soft. Absent: distended, tenderness Additional comments: KADEN drain site with dressing C/D/I. - Extremities Exam Extremities exam: Present: normal inspection. Absent: joint swelling, pedal edema, tenderness - Neurological Exam Neurological exam: Present: alert, oriented X3, no focal deficits - Psychiatric Psychiatric exam: Present: normal affect, normal mood - Skin Skin exam: Present: dry, intact, normal color, warm - VTE Documentation of Mechanical Device: Intermittent pneumatic compression device Consult Discharge Plan - Plan Instructions: Atrial Fibrillation (DC), Liver Abscess (GEN), Sepsis (DC) Referrals: Angelia Alvarez CNP [Advanced Practice Nurse] - 07/23/18 9:20 am (Please follow up as schedule...) Omar Tesfaye DO [Primary Care Provider] - 07/15/18 1:00 pm (Please follow up as schedule...) Prescriptions: Aspirin 81 mg PO DAILY #30 tab.chew cefTRIAXone [Rocephin] 2,000 mg IVPB DAILY #7 vial Levofloxacin 500 MG/100 ML [Levaquin Premix 500mg/100mL] 500 mg IVPB DAILY #7 bag Metoprolol [Lopressor] 25 mg PO BID 30 Days #30 tablet metroNIDAZOLE [Flagyl] 500 mg PO TID 7 Days #21 tablet - Attending Attestation I examined this patient and my medical decision-making was reviewed with the PARTS ANALYST. I agree with the documented findings, disposition and treatment plan as described except to the extent set forth below.
--- NOTE | 2018-07-08 12:39 | Electrocardiograph Report ---
[address] [place] [address] Test Date: 2018-07-06 Pat Name: Denis Romero Department: 112 Room: 2A Gender: M Building Cleaning Supervisor: : 1945 Requested By: Sina Vale Order Number: [id number] Reading MD: Kale Martinez Measurements Intervals [place] Rate: 132 P: [place]: 0 QRS: 18 QRSD: 96 T: 22 QT: 301 QTc: 379 Interpretive Statements ATRIAL FIBRILLATION WITH RAPID VENTRICULAR RESPONSE Electronically Signed On 07-08-2018 12:37:23 EDT by Kale Martinez
[2018-07-08] MEDS: Melatonin 3 MG TABLET PO SCH (21:27)
[2018-07-09 05:21] LABS: Basophils # 0.1 K/mcL (0.0-0.2); Basophils % 0.5 %; Eosinophils # 0.1 K/mcL (0.0-0.6); Eosinophils % 0.6 %; Hematocrit 43.6 % (37.5-50.1); Hemoglobin 14.2 g/dL (12.9-16.9); Lymphocytes # 2.2 K/mcL (0.6-4.6); Mean Corpuscular HGB Conc 32.6 g/dL (31.6-35.5); Mean Corpuscular Hemoglobin 28.2 pg (28.0-33.3); Mean Corpuscular Volume 86.5 fL (83.0-100.0); Mean Platelet Volume 10.2 fL (9.4-12.4); Monocytes # 0.7 K/mcL (0.0-1.3); Monocytes % 4.3 %; Neutrophils # 13.3 K/mcL (1.6-8.9); Nucleated Red Blood Cells 0.1 /100 WBC (0); Platelet Count 242 K/mcL (140-400); Red Blood Count 5.04 M/mcL (4.19-5.50); Red Cell Distribution Width 13.1 % (11.5-14.5); Segmented Neutrophils % 77.6 %
[2018-07-09 05:38] LABS: BUN/Creatinine Ratio 23 (6-26); Blood Urea Nitrogen 21 mg/dL (8-23); Calcium 8.2 mg/dL (8.6-10.3); Carbon Dioxide 27 mEq/L (23-29); Chloride 104 mEq/L (98-107); Glucose 102 mg/dL (70-105); Osmolality,Calculated 291 (280-300); Potassium 3.7 mEq/L (3.5-5.1); Sodium 139 mEq/L (136-145); eGFR For Non-African Americans > 60 (> 60)
[2018-07-09] MEDS: Insulin LISPRO 300 UNITS/3 ML VIAL SQ SCH ×2 (07:40→11:37)
[2018-07-09] MEDS: Aspirin 81 MG TAB.CHEW PO SCH (07:56)
[2018-07-09] MEDS: Piperacillin/Tazobactam 3.375 GM in 0.9 % Sodium Chloride Mini Bag 100 ML IVPB SCH (07:56)
[2018-07-09] MEDS ORDERED: cefTRIAXone 2,000 MG in Water for inj. (sterile) 20 ML 20 ML IVP SCH (10:03)
[2018-07-09] MEDS ORDERED: Levofloxacin 750 MG/150 ML 750 MG/150 ML BAG IVPB SCH (10:03)
[2018-07-09] MEDS ORDERED: metroNIDAZOLE 500 MG TABLET PO SCH (10:15)
--- NOTE | 2018-07-09 10:40 | Event Note ---
<Martin Sosa - Last Filed: 07/09/18 10:36> Date of Encounter: 07/09/18 Time of Encounter: 10:36 Patient waiting for discharge. I changed his home IV Levaquin from 500mg/100ml to 750mg/150ml for 7 days Martin Sosa DO <Anisa Alstoncruz - Last Filed: 07/09/18 17:11> Date of Encounter: 07/09/18 I examined this patient and my medical decision-making was reviewed with the Resident Physician Dr. Baig. I agree with the documented findings, disposition and treatment plan as described except to the extent set forth below. He was in no acute distress on my exam. Hemodynamically stable. Antibiotics on discharge: Levaquin, Flagyl, Rocephin.
[2018-07-09 11:04] VITALS: BP 137/77
--- NOTE | 2018-07-09 11:07 | Infectious Disease Progress No ---
Date of Encounter: 07/09/18 Time of Encounter: 11:04 - Assessment and Plan (1) Sepsis Status: Acute Severe sepsis: The patient developed tachycardia, low-grade fever, and tachypnea post-procedure. He also had leukocytosis on admission. Lactic acid elevated and was a little hypotensive yesterday. Likely secondary to liver abscess and bacteremia. Improved. Afebrile. WBC trending down. Tachycardic over the weekend, but resolved. Blood cultures drawn 07/03/18 are positive 2/2 sets for Bacteroides fragilis. Repeat blood cultures drawn 07/04/18 are negative x 2 sets. Qualifiers: Sepsis type: sepsis due to unspecified organism Qualified Code(s): A41.9 - Sepsis, unspecified organism (2) Bacteremia Status: Acute Causative organism unclear, but appears to be a GNR. Unsure if this is secondary to liver abscess or if liver abscess is sequelae of bacteremia. Blood cultures drawn 07/03/18 are positive 2/2 sets for Bacteroides fragilis. Susceptibilities are pending, but per micro will take 5-7 days. Repeat blood cultures drawn 07/04/18 are negative x 2 sets. Continue Zosyn 3.375 grams IV Q8H. Duration of treatment depends on the clinical picture, but the patient will require a prolonged course of IV antibiotics for his liver abscess. Will plan on transitioning to PO Flagyl 500mg PO TID when ready for discharge. Monitor renal function and for drug toxicity and dose-adjust antibiotics. (3) Liver abscess Status: Acute Etiology: Unclear. The patient has bacteremia, so unclear if this is the source of his bacteremia or sequelae. The patient's CT scan shows diverticulosis without diverticulitis and the patient has no known cases of diverticulitis, although this could be a possible cause of the patient's liver abscess. Causative organism: E. cloacae, E. coli, Strep dysgalactiae, and likely anaerobes based on blood cultures. CT of the abdomen and pelvis showed a 7.1cm liver abscess. IR consulted. Status post CT-guided drain placement with approximately 70ml of pus drained 07/04/18. Culture positive for Enterobacter cloacae, Strep dysgalactiae, and E. coli. Drain removed 07/08/18. Continue Zosyn 3.375 grams IV Q8H. Duration of treatment depends on the clinical picture, but likely 4 weeks of IV antibiotics followed by two weeks of PO. Recommend Rocephin 2 grams IV daily and Levaquin 750mg IV daily on discharge. Will need a one-time dose of Rocephin and Levaquin prior to discharge. Will also require PO flagyl 500mg PO TID. Monitor renal function and for drug toxicity and dose-adjust antibiotics. Midline placed 07/08/18. Will need weekly CBC, BUN/Cr, ESR, and CRP. Will need weekly midline care per protocol. Follow up with ID 07/23/18 at 0920. (4) Lactic acidosis Status: Acute Likely secondary to sepsis. Resolved. (5) Elevated troponin Status: Acute Troponin 0.06/0.03/0.03. Consider cardiology consult. (6) Adrenal mass Status: Acute Etiology unclear, but does not appear infectious. Further workup and management per the primary team. (7) Lung nodule < 6cm on CT Status: Acute CT chest showed a 9.1mm RUL nodule. Pulmonology follow-up as an outpatient. (8) GERD (gastroesophageal reflux disease) Status: Chronic Qualifiers: Esophagitis presence: esophagitis presence not specified Qualified Code(s) : K21.9 - Gastro-esophageal reflux disease without esophagitis - Subjective Interval history: Patient seen and examined. No acute events noted overnight. Patient sitting up in bed with at bedside. States he feels better this morning and wants to go home. Denies pain. Denies chest pain, shortness of breath, or cough. Denies nausea, vomiting, or diarrhea. Denies urinary complaints and states he ate a little bit of breakfast this morning. Denies oral thrush or skin lesions. Infect Dis PN-Objective Data - Labs CBC & Chem 7: 07/09/18 05:06 07/09/18 05:06 Labs: Laboratory Results - last 24 hr 07/08/18 07/08/18 07/08/18 07:01 10:59 16:13 WBC RBC Hgb Hct MCV MCH MCHC RDW Plt Count MPV Immature Gran % Seg Neutrophils % Lymphocytes % Monocytes % Eosinophils % Basophils % Neutrophils # Lymphocytes # Monocytes # Eosinophils # Basophils # Nucleated RBCs/100 WBC Sodium Potassium Chloride Carbon Dioxide BUN Creatinine Est GFR ( Amer) Est GFR (Non-Af Amer) BUN/Creatinine Ratio Glucose POC Glucose 87 87 105 H Calculated Osmolality Calcium 07/08/18 07/09/18 07/09/18 20:28 05:06 05:06 WBC 17.1 H RBC 5.04 Hgb 14.2 Hct 43.6 MCV 86.5 MCH 28.2 MCHC 32.6 RDW 13.1 Plt Count 242 MPV 10.2 Immature Gran % 4.0 Seg Neutrophils % 77.6 Lymphocytes % 13.0 Monocytes % 4.3 Eosinophils % 0.6 Basophils % 0.5 Neutrophils # 13.3 H Lymphocytes # 2.2 Monocytes # 0.7 Eosinophils # 0.1 Basophils # 0.1 Nucleated RBCs/100 WBC 0.1 H Sodium 139 Potassium 3.7 Chloride 104 Carbon Dioxide 27 BUN 21 Creatinine 0.92 Est GFR ( Amer) > 60 Est GFR (Non-Af Amer) > 60 BUN/Creatinine Ratio 23 Glucose 102 POC Glucose 88 Calculated Osmolality 291 Calcium 8.2 L Cultures: Cultures 07/04/18 Unknown Body Fluid Culture - Final Other-Specify in Comments Enterobacter cloacae complex Str. dysgalactiae equisimilis Escherichia coli 07/04/18 12:38 Blood Culture - Preliminary Peripheral Venipuncture Culture is incubating and being continuously monitored for growth. Final report to follow. 07/04/18 12:38 Blood Culture - Preliminary Peripheral Venipuncture Culture is incubating and being continuously monitored for growth. Final report to follow. Exam - Constitutional Vitals: Temp Pulse Resp BP Pulse Ox 97.8 F 60 17 165/97 96 07/09/18 07:10 07/09/18 07:10 07/09/18 07:10 07/09/18 07:10 07/09/18 07:10 General appearance: average body habitus, cooperative, no acute distress - Head Head exam: Present: atraumatic, normal inspection, normocephalic - Eye Eye exam: Present: EOMI, normal appearance, PERRL Pupils: Present: normal accommodation - ENT ENT exam: Present: mucous membranes moist - Neck Neck exam: Present: normal inspection - Respiratory Respiratory exam: Present: CTAB. Absent: rales, respiratory distress, rhonchi, wheezes - Cardiovascular Cardiovascular exam: Present: RRR, +S1, +S2 - GI/Abdominal GI/Abdominal exam: Present: normal bowel sounds, soft. Absent: distended, tenderness - Extremities Exam Extremities exam: Present: normal inspection. Absent: joint swelling, pedal edema, tenderness - Neurological Exam Neurological exam: Present: alert, oriented X3, no focal deficits - Psychiatric Psychiatric exam: Present: normal affect, normal mood - Skin Skin exam: Present: dry, intact, normal color, warm - Additional findings Additional findings: Nanda noted to the RUE with transparent dressing C/D/I. - VTE Documentation of Mechanical Device: Intermittent pneumatic compression device Consult Discharge Plan - Plan Instructions: Atrial Fibrillation (DC), Liver Abscess (GEN), Sepsis (DC) Referrals: Angelia Alvarez CNP [Advanced Practice Nurse] - 07/23/18 9:20 am (Please follow up as schedule...) Omar Tesfaye DO [Primary Care Provider] - 07/15/18 1:00 pm (Please follow up as schedule...) Prescriptions: Aspirin 81 mg PO DAILY #30 tab.chew cefTRIAXone [Rocephin] 2,000 mg IVPB DAILY #7 vial Levofloxacin 500 MG/100 ML [Levaquin Premix 500mg/100mL] 500 mg IVPB DAILY #7 bag Levofloxacin 750 MG/150 ML [Levaquin Premix 750mg/150 mL] 750 mg IVPB DAILY #7 bag Metoprolol [Lopressor] 25 mg PO BID 30 Days #30 tablet metroNIDAZOLE [Flagyl] 500 mg PO TID 7 Days #21 tablet - Attending Attestation I examined this patient and my medical decision-making was reviewed with the Resident Physician. I agree with the documented findings, disposition and treatment plan as described except to the extent set forth below.
== END 2018-07-09 13:29 | disposition home health service (06) | DRG 871 ==
LOC: EMEROO 14:48 → 2ANU 14:48 → ICNU 07-04 13:30 → 2ANU 07-05 16:12
PROVIDERS: ADMIT Internal Medicine; ATTEND Internal Medicine
PROC: IRDRAIN (2018-07-04 13:15)